=== PATIENT | female | born 1960 | race Caucasian/White ===

== ENCOUNTER 2016-11-24 01:36 | Day surgery (SDC) | payer OTHER ==
[~2016-11-24] VITALS: Ht 170.2 cm; Wt 59.5 kg
[2016-11-24] VITALS (14 sets, daily range): BP systolic 98–131; BP diastolic 48–71; PULSE 75–86; RESP 13–20; O2SAT 91–97
[~2016-11-24 01:36] MED LIST: AMLO5TAB2 PO; FUR20 PO; GABA-502 PO; LORA2TAB PO; METO-272 PO; NITR0.4T6 SL; OXYC5SOL11 PO; PANT40TA3 PO; PROC-4 PO; SUCR1TAB PO; VIT D2 PO; ZOLP10TA5 PO
[2016-11-24] MEDS ORDERED: 0.9% Sodium Chloride 1,000 ML IV SCH (11:45)
[2016-11-24 12:58] LABS: BASOPHILS % (AUTO) 0.3 % (0-3); EOSINOPHILS % (AUTO) 0.4 % (0-5); MONOCYTES % (AUTO) 6.3 % (4-12); Mean Corpuscular Hemoglobin 28.9 pg (27.0-35.0); NEUTROPHILS % (AUTO) 71.9 % (40-74); Platelet Count 375 bil/L (150-400)
[2016-11-24] MEDS ORDERED: Heparin 5,000 Units/500 mL NS Premix IV ONE (13:21)
[2016-11-24] MEDS ORDERED: Heparin 1,000 Units/500 mL NS Premix IV ONE (13:21)
[2016-11-24] MEDS ORDERED: Nitroglycerin 50,000 mcg/250 mL D5W Premix IV ONE (13:21)
[2016-11-24 13:24] LABS: INR 0.85 ratio
[2016-11-24] MEDS ORDERED: Heparin 1,000 Unit/mL 10 mL Inj ONE (13:24)
[2016-11-24] MEDS ORDERED: CILO50TA PO (13:27)
[2016-11-24] MEDS ORDERED: CHOL500050 PO (13:27)
[2016-11-24] MEDS ORDERED: RANI300T4 PO (13:27)
[2016-11-24] MEDS ORDERED: DOCU250C2 PO (13:27)
[2016-11-24] MEDS ORDERED: POTA-62 PO (13:27)
[2016-11-24] MEDS ORDERED: MAGN400T39 PO ×2 (13:27)
[2016-11-24] MEDS ORDERED: IBUP800T28 PO (13:27)
[2016-11-24] MEDS ORDERED: OXYB5TAB PO (13:27)
[2016-11-24] MEDS ORDERED: AMLO10TA3 PO (13:27)
[2016-11-24] MEDS ORDERED: ISOS30TA4 PO (13:27)
[2016-11-24] MEDS ORDERED: TIZA2TAB3 PO (13:27)
--- NOTE | 2016-11-24 13:40 | NUR ---
HANNA admit Admitted to [facility] about 1215. VSS. Tele appears to be SR with IVCD. States chronic pain that is currently 7/10 and uncomfortable though she took Oxycodone 10mg at 1000. States she would have to take too much pain medication to be truly comfortable. IVs started and labs sent. Procedure and recovery reviewed and verbalizes understanding. See EMR for further info and assessment. Premeds given about 1330, Ativan 1mg IVP and Benadryl 25mg IVP. To slab tripper about 1335.
[2016-11-24] MEDS ORDERED: fentaNYL-PF 50 mCg/mL 2 mL Inj ONE (13:46)
--- NOTE | 2016-11-24 14:55 | NUR ---
Returned Returned from labor mediator about 1450 with sheath in. labor relations officer personal here to pull. VSS. No bleeding or hematoma pre pull. States pain tolerable. Dozing. SPO2 drops to as low as 87% on RA sleeping. O2 placed at 2L BNC and SPO2 increased to 92-94%.
[2016-11-24] MEDS ORDERED: ATRV10T PO (15:40)
--- NOTE | 2016-11-24 19:35 | NUR ---
Discharge VS and groin stable at 1910 when bedrest complete. Had c/o 9/10 generalized pain at [address] Eid notified. Home med ordered and given with pain down to 6/10. Up and ambulated in mathews without change in groin. Discharge instructions given, see sheets and verbalizes understanding. Prescription given. IVs discontinued intact. Discharged ambulatory with all belongings and in no distress.
--- NOTE | 2016-11-25 06:45 | CS94 ---
[address] [address] DIAGNOSTIC CARDIAC CATHETERIZATION PATIENT: SINA RYAN : 1960 MR#: [id number] ADMIT: 11/24/2016 JOB ID: [id number] SERVICE DATE: 11/24/2016 CHIEF COMPLAINT: Angina. HISTORY OF PRESENT ILLNESS: The patient is a 65-year-old woman with severe life-threatening anemia, hemoglobin was 5 during her hospitalization at [facility] in July 2016. She had associated elevated troponin I which peaked at 0.7 in the setting of normal kidney function. EKG difficult to interpret due to left bundle branch block. Her echocardiogram at that time showed apical hypokinesis with preserved EF. She responded well to medical therapy and subsequent echo September 2015 showed normal EF with no associated focal motion abnormalities. Unfortunately, lately she has developed worsening exertional chest discomfort and Cardiology was consulted to assist with management. Today, she is here for diagnostic cath. PROCEDURES PERFORMED: 1. Left heart catheterization-selective coronary angiograms. 2. Right common femoral artery vascular access under ultrasound guidance. 3. Manual hold. DESCRIPTION OF PROCEDURE: Following informed consent, the patient was prepped and draped in a sterile fashion. A 6-Dutch sheath was placed in the right common femoral artery. Sheath placement was confirmed via femoral angiogram. JL4, JR4 catheters were used to engage left main and right coronary arteries. injection of craniocaudal angulation was used to obtain selective coronary angiograms. All exchanges were performed over a wire. Left ventricular end-diastolic pressure was recorded via JR4 catheter. At this juncture, catheters were withdrawn, hemostasis was obtained. The patient tolerated the procedure with no obvious complications. IODINATED CONTRAST USED: 75 cc. FINDINGS: RIGHT COMMON FEMORAL ARTERY: By ultrasound, patient had moderately calcified common femoral artery, superficial femoral artery and profunda femoris. The sheath enters the SFA at the lower third of the femoral head. There is no evidence of contrast extravasation or dissection. There is heavy calcification up and down the common iliac artery, but no obstructive disease is present. CORONARY ANGIOGRAM: Left main gives rise to circumflex and LAD. There is a moderate (30%) stenosis but no hemodynamically significant lesion was present. LAD is a wrap-around vessel. It demonstrates moderate calcification. It gives rise to the 1st diagonal branch which is somewhat tortuous. After the diagonal branch, there is a 40%-50% stenosis. There is a long 40%-50% stenosis in the distal portion of the LAD just distal to the 2nd small diagonal branch, but it does not appear to be hemodynamically significant. It is best appreciated on [place]O cranial view. Circumflex gives rise to two OM branches, medium sized 1st OM and large second OM and then travels in the AV groove as a diminutive vessel. No obstructive lesions are seen. The right coronary artery is a dominant vessel. It gives rise to a 99% disease of ostial small atrial recurrent branch. There is a 30%-40% eccentric proximal RCA lesion which does not appear to be hemodynamically significant. IMPRESSION: 1. Atherosclerotic heart disease and GIN FEEDER disease without hemodynamically significant stenosis. 2. There is moderate nonhemodynamically significant 30% distal left main lesion, a 40%-50% mid left anterior descending and distal left anterior descending lesion and 40% proximal right coronary artery stenosis and these are not hemodynamically significant. 3. High filling pressure. End diastolic pressure is above 25. PLAN: For this patient is to continue amlodipine 10 mg daily. I think she may be a person who would do really well with a little bit of beta-libby for medical management of her angina. Thank you very much for the opportunity to evaluate her. MARILEE
== END 2016-11-24 23:59 | disposition home or self-care (01) ==
LOC: SOUO 01:36
PROVIDERS: ATTEND Internal Medicine
DX: I25.119 Atherosclerotic heart disease of native coronary artery with unspecified angina pectoris (principal); I70.201 Unspecified atherosclerosis of native arteries of extremities, right leg; I10 Essential (primary) hypertension; D50.0 Iron deficiency anemia secondary to blood loss (chronic); I42.9 Cardiomyopathy, unspecified; Z87.891 Personal history of nicotine dependence; I70.8 Atherosclerosis of other arteries
CPT/HCPCS: 36415; 80048; 85025; 85610; 93458; 99152; C1769; J1200; J1644; J2060; J2250; J3010; J7030; Q9967

== ENCOUNTER 2017-02-15 15:51 | Inpatient (IN) | payer OTHER ==
[~2017-02-15] VITALS: Ht 170.2 cm; Wt 62.2 kg
[~2017-02-15 15:51] MED LIST changes: +AMLO10TA3 PO; -AMLO5TAB2 PO; +ATRV10T PO; +CHOL500050 PO; +DOCU250C2 PO; -FUR20 PO; +IBUP800T28 PO; +ISOS30TA4 PO; +MAGN400T39 PO; +OXYB5TAB PO; +POTA-62 PO; +RANI300T4 PO; +TIZA2TAB3 PO; -VIT D2 PO
[2017-02-15 16:00] VITALS: BP 144/78; PULSE 96; RESP 20; O2SAT 92
--- NOTE | 2017-02-15 16:07 | ED.REPORT ---
HPI-Abd Pain F 40 and Over Date of Service Feb 15, 2017 ED Provider: History of Present Illness: 56-year-old female here with abdominal pain, chest pain, shortness of breath. She has a history of chronic abdominal pain with an unknown diagnoses. She has had lengthy workups in the past. For the past month she has felt burning in her lower bowels. It is constant and worsens with the bowel movement. Last BM was today, passing gas. Usually her belly pain goes away by midday but today it has just been constant and unbearable. She vomits nightly and she did vomit last night. Does not complain of nausea now. Over the past few days she has been short of breath worsening with activity. She complains of chest pain onset 7 AM today. SHe feels a pressure over her left chest. Denies nausea, and lightheadedness. She has an appointment with a new GI specialist on Thursday of this week. Last saw GI earlier this year and has had colonoscopies. She has a known "bowel bleed" she did see some bright red blood in her stool today as she does every day. She is a history of cardiomyopathy as well and normally sats low. She states that 92% is good for her. NO fevers. Nursing Notes Stated Complaint: BOWELS FEEL LIKE THEIR ON FIRE,HAS BOWEL DISEASE Chief Complaint: Female Abdominal Pain Nursing Notes Reviewed: Yes Allergies: Coded Allergies: ciprofloxacin (Verified Allergy, Severe, HIVES, 02/15/17) adhesive tape (Verified Adverse Reaction, Intermediate, WELTS, 02/15/17) Scheduled Amlodipine (Amlodipine) 10 Mg Tablet 10 MG PO DAILY Atorvastatin (Lipitor) 10 Mg Tab 10 MG PO DAILY Cholecalciferol (Vitamin D3) (Vitamin D) 50,000 Unit Capsule 50,000 UNIT PO WEEKLY Gabapentin (Gabapentin) 300 Mg Capsule 300 MG PO BID Isosorbide MN ER (Isosorbide MN ER) 30 Mg Tab.er.24h 30 MG PO DAILY Magnesium Oxide (Magnesium) 400 Mg Tablet 800 MG PO MORNING Magnesium Oxide (Magnesium) 400 Mg Tablet 400 MG PO QPM Metoprolol Succinate ER (Metoprolol Succinate ER) 50 Mg Tab.er.24h 50 MG PO DAILY Nitroglycerin SL (Nitroglycerin SL) 0.4 Mg Tab.subl 0.4 MG SL PRN Oxybutynin Chloride ER (Oxybutynin Chloride ER) 5 Mg Tab.er.24 5 MG PO DAILY Pantoprazole DR (Pantoprazole DR) 40 Mg Tablet.dr 40 MG PO DAILY Potassium Chloride ER (Potassium Chloride ER) 20 Meq Tablet.er 20 MEQ PO TID TAKE WITH FOOD Prochlorperazine Maleate (Compazine) 10 Mg Tablet 10 MG PO TID Ranitidine (Ranitidine) 300 Mg Tablet 300 MG PO HS Sucralfate (Sucralfate) 1 Gm Tablet 1 GM PO TID Tizanidine (Tizanidine) 2 Mg Tablet 2 MG PO TID Scheduled PRN Docusate Sodium (Docusate Sodium) 250 Mg Capsule 250 MG PO DAILY PRN PRN For Constipation Ibuprofen (Ibuprofen) 800 Mg Tablet 800 MG PO TID PRN PRN For Pain Lorazepam (Lorazepam) 2 Mg Tablet 2 MG PO HS PRN PRN For Insomnia Zolpidem (Zolpidem) 10 Mg Tablet 5-10 MG PO HS PRN PRN For Insomnia oxyCODONE (oxyCODONE) 5 Mg/5 Ml Solution 10-20 MG PO Q4 PRN PRN For Pain [id number] PRN PAIN General Time Seen by MD: 16:07 Chief Complaint Abdominal pain, Nausea Hx Obtained From: Patient Arrived By: Walk-in Sudden in Onset?: No Onset Occurred: Onset unknown Symptom Duration: Constant Location: : Diffuse Quality: Burning Radiation: : Does not radiate Associated with: Reports: Chest pain, Vomiting Recent Healthcare: Recent doctor visit Similar Sx Previous: Yes Past Medical History Smoking History Former Smoker Review of Systems Basic Review of Systems Eyes: Vision NL, No discharge ENT: Hearing NL, No pain, No nasal congestion, No pharyngeal pain Skin: No bruising, No rash, No itch Allergy / Immune: No allergy Neurologic: NL mental status, No weakness, No numbness Psychiatric: Normal thought content Constitutional: Denies: Chills, Fatigue, Fever Respiratory: Reports: Dyspnea on exertion, Non-productive cough Cardiovascular: Reports: Chest pain, Dyspnea on exertion GI: Reports: Abdominal pain, Nausea, Vomiting, Denies: Constipation, Diarrhea Female: Denies: Dysuria, Flank pain Musculoskeletal: Denies: Back pain, Extremity pain, Extremity swelling Complete sys rev & neg: except as marked. Physical Exam Vital Signs Vital Signs (First) Date Time Temp Pulse Resp B/P Pulse Ox O2 Delivery O2 Flow Rate FiO2 02/15/17 16:00 36.6 96 20 144/78 92 Room Air Initial VS: Reviewed, Vital signs normal Head / Eyes: Atraumatic, Normocephalic, PERRL ENT: Mucous membranes moist, Conjunctiva normal, No scleral icterus Neck: Supple, Non-tender, Full range of motion Lymphatic: No lymphadenopathy Extremities: Vascular intact, Neuro intact, No swelling, No tenderness Skin: Warm, Dry, No cyanosis Neurologic: Alert, Oriented, Nonfocal Psychiatric: Mood/affect normal, Behavior normal, Normal thought content General/Constitutional: Awake, Alert Respiratory / Chest: Breath sounds NL, Breath sounds = bilat, No respiratory distress, No rales, No rhonchi, No wheezing, No stridor Cardiovascular: Heart rate NL, Regular rhythm, Heart sounds NL, Peripheral circulation NL Abdomen: Atraumatic, BS normoactive, No distention, No hernia, No palpable mass , No pulsatile mass Tenderness/Guarding/Rebound: Positive: Tender diffuse, Negative: Tender flank L, Tender flank R Skin: Color NL, Warm, Dry, Turgor NL Interpretation & Diagnostics Lab Results Interpretation Result Diagram: 02/15/17 1725 02/15/17 1725 Test 02/15/17 17:15 02/15/17 17:25 Hold Urine Received (Received) White Blood Count 12.4th/mm3 (3.8-10.1) Red Blood Count 4.80mil/mm3 (3.90-5.20) Hemoglobin 13.2g/dL (12.0-15.6) Hematocrit 43.1% (35.0-46.0) Mean Corpuscular Volume 89.8fL (81-100) Mean Corpuscular Hemoglobin 27.5pg (27.0-35.0) Mean Corpuscular Hemoglobin Concent 30.6% (32.0-37.0) Red Cell Distribution Width 15.7% (12.3-15.4) Platelet Count 324bil/L (150-400) Neutrophils (%) (Auto) 77.3% (40-74) Lymphocytes (%) (Auto) 13.6% (14-46) Monocytes (%) (Auto) 7.9% (4-12) Eosinophils (%) (Auto) 0.6% (0-5) Basophils (%) (Auto) 0.4% (0-3) Sodium Level 135mEq/L (134-144) Potassium Level 3.6mEq/L (3.5-5.2) Chloride Level 96mEq/L (97-108) Carbon Dioxide Level 24mmol/L (18-29) Blood Urea Nitrogen 16mg/dL (6-24) Creatinine 0.35mg/dL (0.57-1.00) Estimat Glomerular Filtration Rate 276mL/min (>59) Glucose Level 118mg/dL (60-99) Calcium Level 9.2mg/dL (8.5-10.1) Magnesium Level 1.4mg/dL (1.6-2.6) Total Bilirubin 0.2mg/dL (0.0-1.2) Aspartate Amino Transf (AST/SGOT) 15U/L (0-50) Alanine Aminotransferase (ALT/SGPT) 10U/L (0-32) Alkaline Phosphatase 123U/L (25-150) Troponin T < 0.010ug/L (0.0-0.011) Total Protein 5.6g/dL (6.4-8.4) Albumin 2.9g/dL (3.4-5.0) Amylase Level 24U/L (28-100) Lipase 29U/L (13-60) X-Ray Interpretation Xray Interpretation: PROCEDURE: X-RAY CHEST, TWO VIEWS ([id number]) INDICATIONS: chest pain TECHNIQUE: 2 views of the chest were acquired. COMPARISON: [facility], CT, CT ABD RENAL PROTOCOL, 09/23/2016, 14:41. FINDINGS: Surgical changes and devices: Surgical clips in the left breast and axilla, as well as right mediastinal border. Lungs and pleura: Lungs are lucent, suggesting emphysema. No pleural effusions or pneumothorax. Lungs are clear. Mediastinum: Mediastinal contours are normal. Heart size is normal. Bones and chest wall: No suspicious bony abnormalities. Soft tissues appear unremarkable. IMPRESSION: No acute cardiopulmonary disease. CT Abd / Pelvis Interpretation IMPRESSION: 1. Markedly distended stomach suspicious for gastric outlet obstruction. There are postsurgical changes in stomach. Please correlate with surgical history. 2. Fluid-filled small intestine with increased mucosal enhancement. This finding is nonspecific and could be secondary to gastroenteritis. 3. Small hypodense cortical nodule in the inferior pole of left kidney appears stable. 4. Mild mesenteric lymphadenopathy. 5. Hepatomegaly. 6. Fluid filled slightly distended distal esophagus, possibly secondary to gastroesophageal reflux. Study type: Abdominal CT IV contrast Re-Eval/Medical Decision Med Decision/Clinical Course Patient and much less pain than she was when she came in here. He states every evening she vomits up her dinner at about midnight however she is able to keep lunch and breakfast down. Today the abdominal pain was worse and she was not able to keep her breakfast down. After multiple rechecks she still has moderate abdominal tenderness. STates her SOB went away with relief of pain Discussed CAT scan with Dr. Atwood. Due NG tube with suction and possible admit Avinash, air moving technician will admit pt with GI consult GI lauro will consult. Lauro would liek 40mg IV protonix bid 2130 pt comfortable, vitals stable, awaiting bed Discharge & Departure Shift Change Sign-Out Laboratory Evaluation: Lab evaluation discussed Imaging Studies: Imaging discussed Response to Therapy: Improved Primary Impression: Gastric outlet obstruction Disposition: ADMITTED TO HOSPITAL Discharge Condition All VS Reviewed: Yes Condition: Stable Referrals: Rene Bennett (PCP) EDSupervising Provider for APC: Raulito Atwood DO copies to: Raulito Atwood DO; Kenroy Restrepo MD; Cali Ronquillo MD, Linnea K ARNP Feb 15, 2017 16:07
[2017-02-15] MEDS ORDERED: Ondansetron 2 mg/mL 2 mL Inj IVPUSH ONE (17:05)
--- NOTE | 2017-02-15 17:11 | DRSVH ---
PROCEDURE: X-RAY CHEST, TWO VIEWS ([id number]) INDICATIONS: chest pain TECHNIQUE: 2 views of the chest were acquired. COMPARISON: [facility], CT, CT ABD RENAL PROTOCOL, 09/23/2016, 14:41. FINDINGS: Surgical changes and devices: Surgical clips in the left breast and axilla, as well as right mediasti nal border. Lungs and pleura: Lungs are lucent, suggesting emphysema. No pleural effusions or pneumothorax. [place] gs are clear. Mediastinum: Mediastinal contours are normal. Heart size is normal. Bones and chest wall: No suspicious bony abnormalities. Soft tissues appear unremarkable. IMPRESSION: No acute cardiopulmonary disease. Dictated by: Fawad Hung M.D. on 02/15/2017 at 17:08 Approved by: Fawad Hung M.D. on 02/15/2017 at 17:09
[2017-02-15 17:45] LABS: BASOPHILS % (AUTO) 0.4 % (0-3); EOSINOPHILS % (AUTO) 0.6 % (0-5); MONOCYTES % (AUTO) 7.9 % (4-12); Mean Corpuscular Hemoglobin 27.5 pg (27.0-35.0); Mean Corpuscular Volume 89.8 fL (81-100); NEUTROPHILS % (AUTO) 77.3 % (40-74); Platelet Count 324 bil/L (150-400)
[2017-02-15 18:11] LABS: Lipase 29 U/L (13-60); Magnesium 1.4 mg/dL (1.6-2.6); TROPONIN T < 0.010 ug/L (0.0-0.011)
--- NOTE | 2017-02-15 19:09 | DRSVH ---
PROCEDURE: CT ABDOMEN AND PELVIS WITH CONTRAST ([id number]) INDICATIONS: abd pain TECHNIQUE: After the administration of intravenous contrast, 5 mm thick sections acquired from the diaphragm to the symphysis. 5 mm coronal and sagittal reformats were acquired. For radiation dose reduction, the following was used: automated exposure control, adjustment of mA and/or kV according to patient siz e. COMPARISON: [facility], CR, XR CHEST 2VW, 02/15/2017, 16:40. [facility], MR, ABD/PELVIS W & WO CONT (PNL), 09/13/2014, 8:02. [facility], CT, ABD/PELVIS W/CON (PNL), 09/05/2014, 15:59. [facility], CT, CT ABD RENAL PROTOCOL, 09/23/2016, 14:41. [facility], CT, CT ABD RENAL PROTOCOL, 04/03/2016, 13:46. FINDINGS: Image quality: Excellent. ABDOMEN: Lung bases: Lung bases are clear. Heart size is normal. Solid organs: Liver is enlarged measuring 24.5 cm. Spleen is normal in size and enhancement. Gallbl adder is surgically absent. Biliary system is non dilated. Pancreas is somewhat atrophic. Pancreas enhances normally. No adrenal nodules. Kidneys demonstrate normal size and symmetrical enhancement, without hydronephrosis. There is a small hypoenhancing cortical nodule in the inferior pole of the left kidney measuring 0.8 x 1.0 cm, unchanged in size. Peritoneum and bowel: Stomach is distended and filled with debris. There are postsurgical changes in stomach with a surgical suture. Fluid-filled small bowel loops are noted in the right upper abdomen. There is mildly increased small bowel mucosal enhancement.: demonstrate normal wall thickness and ca liber and absence of contrast. No free fluid or air. Nodes and vessels: Enlarge mesenteric lymph nodes are present measuring up to 1.2 cm in short axis. r etroperitoneal or mesenteric adenopathy by size criteria. Aorta and inferior vena cava are normal in size. There is moderate to severe aortic and iliac artery atherosclerosis Miscellaneous: No ventral hernias. PELVIS: Genitourinary: Bladder wall thickness is normal. Miscellaneous: No inguinal hernias or adenopathy. Bones: No suspicious bony lesions. No vertebral body compression fractures. IMPRESSION: 1. Markedly distended stomach suspicious for gastric outlet obstruction. There are postsurgical davis es in stomach. Please correlate with surgical history. 2. Fluid-filled small intestine with increased mucosal enhancement. This finding is nonspecific and c ould be secondary to gastroenteritis. 3. Small hypodense cortical nodule in the inferior pole of left kidney appears stable. 4. Mild mesenteric lymphadenopathy. 5. Hepatomegaly. 6. Fluid filled slightly distended distal esophagus, possibly secondary to gastroesophageal reflux. Dictated by: Fawad Hung M.D. on 02/15/2017 at 18:51 Approved by: Fawad Hung M.D. on 02/15/2017 at 19:08
[2017-02-15] MEDS ORDERED: 0.9% Sodium Chloride 500 ML IV ONE (19:25)
[2017-02-15 19:55] VITALS: BP 124/62; PULSE 72; RESP 18; O2SAT 88
[2017-02-15 20:30] VITALS: BP 118/72; PULSE 78; RESP 18; O2SAT 95
[2017-02-15] MEDS ORDERED: Polyethylene Glycol (PEG) 17 Gm Powder PO PRN (20:55)
[2017-02-15] MEDS ORDERED: Pantoprazole 4 mg/mL 10 mL Inj IVPUSH ONE (21:30)
--- NOTE | 2017-02-15 21:39 | PCM.HPMED ---
Subjective Date of Service Feb 15, 2017 Primary Provider: Admitting Physician: Cali Ronquillo MD Primary Care Physician: Other,Physician Attending Physician: Cali Ronquillo MD Admit Status: From the Emergency Department Chief Complaint: Nausea, Vomiting, Upper Abdominal Pain History of Present Illness: Very pleasant 56yo woman with complex GI history including distant partial gastrectomy, chronic GI bleed with anemia, SBO presents with nausea, vomiting, and burning pain in the stomach and low abdomen worsening over the last month. She reports that she has been vomiting at night after dinner for the last month or longer, but also recently started vomiting after breakfast and the abdominal pain and burning increased today to being intolerable. She says the partial gastrectomy was an attempt to treat her GI bleed which may have been from bleeding ulcers, but she has continued to have chronic mild bleeding and anemia. She did see some bright red blood in her stool today as she does every day. She is a history of cardiomyopathy as well and normally sats low. She states that 92% is good for her. She also has HTN and HLD. Review of Systems: 12 point ROS is otherwise negative. Allergies Coded Allergies: ciprofloxacin (Verified Allergy, Severe, HIVES, 02/15/17) adhesive tape (Verified Adverse Reaction, Intermediate, WELTS, 02/15/17) Home Medications Scheduled Amlodipine (Amlodipine) 10 Mg Tablet 10 MG PO DAILY Atorvastatin (Lipitor) 10 Mg Tab 10 MG PO DAILY Cholecalciferol (Vitamin D3) (Vitamin D) 50,000 Unit Capsule 50,000 UNIT PO WEEKLY Gabapentin (Gabapentin) 300 Mg Capsule 300 MG PO BID Isosorbide MN ER (Isosorbide MN ER) 30 Mg Tab.er.24h 30 MG PO DAILY Magnesium Oxide (Magnesium) 400 Mg Tablet 800 MG PO MORNING Magnesium Oxide (Magnesium) 400 Mg Tablet 400 MG PO QPM Metoprolol Succinate ER (Metoprolol Succinate ER) 50 Mg Tab.er.24h 50 MG PO DAILY Nitroglycerin SL (Nitroglycerin SL) 0.4 Mg Tab.subl 0.4 MG SL PRN Oxybutynin Chloride ER (Oxybutynin Chloride ER) 5 Mg Tab.er.24 5 MG PO DAILY Pantoprazole DR (Pantoprazole DR) 40 Mg Tablet.dr 40 MG PO DAILY Potassium Chloride ER (Potassium Chloride ER) 20 Meq Tablet.er 20 MEQ PO TID TAKE WITH FOOD Prochlorperazine Maleate (Compazine) 10 Mg Tablet 10 MG PO TID Ranitidine (Ranitidine) 300 Mg Tablet 300 MG PO HS Sucralfate (Sucralfate) 1 Gm Tablet 1 GM PO TID Tizanidine (Tizanidine) 2 Mg Tablet 2 MG PO TID Scheduled PRN Docusate Sodium (Docusate Sodium) 250 Mg Capsule 250 MG PO DAILY PRN PRN For Constipation Ibuprofen (Ibuprofen) 800 Mg Tablet 800 MG PO TID PRN PRN For Pain Lorazepam (Lorazepam) 2 Mg Tablet 2 MG PO HS PRN PRN For Insomnia Zolpidem (Zolpidem) 10 Mg Tablet 5-10 MG PO HS PRN PRN For Insomnia oxyCODONE (oxyCODONE) 5 Mg/5 Ml Solution 10-20 MG PO Q4 PRN PRN For Pain Q4-O2EPAHN PRN PAIN PMH Bleeding Ulcer Cardiomyopathy Peripheral Artery Disease HLD HTN Chronic Anemia Surgical History Partial Gastrectomy SBO laparoscopic surgery Family History Father unknown Mother has CHF and Crohn's Disease Social History Hx Alcohol Use: No Hx Substance Use: No Hx Tobacco Use: No Smoking Status: Former Smoker (quit in 1989) Living Arrangement: with Family Exam Vital Signs Vital Sign - Last Date Time Temp Pulse Resp B/P Pulse Ox O2 Delivery O2 Flow Rate FiO2 02/15/17 19:55 36.4 72 18 124/62 88 Room Air Exam General: Alert, Oriented X3, Cooperative, No Acute Distress Head: Normocephalic, atraumatic. External ears normal. Eyes: PERRLA, EOMI. Anicteric sclerae. Mouth: Mouth Normal, Mucous Membranes pink, slightly dry Neck: Neck supple with full range of motion. Chest & Lungs: Clear to auscultation bilaterally with no crackles, wheezes, or rhonchi. Cardiovascular: Regular Rate/Rhythm, Normal S1, Normal S2, No Murmurs/Rubs/ Gallops Abdomen: Tender diffusely, Non-distended, No masses, Normoactive bowel tones, Soft Musculoskeletal: Normal Range of Motion Extremities: No cyanosis/clubbing/edema bilaterally Lab and Diagnostics Labs Laboratory Tests Test 02/15/17 17:15 02/15/17 17:25 Hold Urine Received (Received) White Blood Count 12.4th/mm3 (3.8-10.1) Red Blood Count 4.80mil/mm3 (3.90-5.20) Hemoglobin 13.2g/dL (12.0-15.6) Hematocrit 43.1% (35.0-46.0) Mean Corpuscular Volume 89.8fL (81-100) Mean Corpuscular Hemoglobin 27.5pg (27.0-35.0) Mean Corpuscular Hemoglobin Concent 30.6% (32.0-37.0) Red Cell Distribution Width 15.7% (12.3-15.4) Platelet Count 324bil/L (150-400) Neutrophils (%) (Auto) 77.3% (40-74) Lymphocytes (%) (Auto) 13.6% (14-46) Monocytes (%) (Auto) 7.9% (4-12) Eosinophils (%) (Auto) 0.6% (0-5) Basophils (%) (Auto) 0.4% (0-3) Sodium Level 135mEq/L (134-144) Potassium Level 3.6mEq/L (3.5-5.2) Chloride Level 96mEq/L (97-108) Carbon Dioxide Level 24mmol/L (18-29) Blood Urea Nitrogen 16mg/dL (6-24) Creatinine 0.35mg/dL (0.57-1.00) Estimat Glomerular Filtration Rate 276mL/min (>59) Glucose Level 118mg/dL (60-99) Calcium Level 9.2mg/dL (8.5-10.1) Magnesium Level 1.4mg/dL (1.6-2.6) Total Bilirubin 0.2mg/dL (0.0-1.2) Aspartate Amino Transf (AST/SGOT) 15U/L (0-50) Alanine Aminotransferase (ALT/SGPT) 10U/L (0-32) Alkaline Phosphatase 123U/L (25-150) Troponin T < 0.010ug/L (0.0-0.011) Total Protein 5.6g/dL (6.4-8.4) Albumin 2.9g/dL (3.4-5.0) Amylase Level 24U/L (28-100) Lipase 29U/L (13-60) Result Diagram: 02/15/175 02/15/17 1725 X-Rays, CTs and MRIs CXR, 02.15.17 IMPRESSION: No acute cardiopulmonary disease. CT abdomen and pelvis, 02.15.17 IMPRESSION: 1. Markedly distended stomach suspicious for gastric outlet obstruction. There are postsurgical changes in stomach. Please correlate with surgical history. 2. Fluid-filled small intestine with increased mucosal enhancement. This finding is nonspecific and could be secondary to gastroenteritis. 3. Small hypodense cortical nodule in the inferior pole of left kidney appears stable. 4. Mild mesenteric lymphadenopathy. 5. Hepatomegaly. 6. Fluid filled slightly distended distal esophagus, possibly secondary to gastroesophageal reflux. 12-lead ECG Normal Sinus Rhythm with LBBB Assessment & Plan 56yo woman with history of partial gastrectomy, chronic GI bleed, SBO presents with increasing abdominal pain, nausea, and vomiting for the last month, intolerable today. CT suggests gastric outlet obstruction, distension of distal esophagus. 1. Gastric Outlet Obstruction, POA, confirmed by CT with clinical correlation of symptoms. -NPO -Nasogastric tube placed -Pain well controlled with one dose of Morphine 4mg IV, now 2mg IV q4h PRN -GI consult has been placed, Dr Grider will see patient. -Start replacement 2. Nausea and Vomiting -Ondansetron 4mg IV PRN 3. GERD -Pantoprazole 40mg IV push BIDAC 4. Hypovolemia with poor intake, poor tissue turgor on exam -NS 500ml IV bolus given in ER -Start NS 100ml/h IV as maintenance 5. Hypomagnesemia at 1.4. Chronic hypomagnesemia and chronic hypokalemia on replacement therapy. -Nurse to initiate K/Mg repletion protocol 6. Insomnia with anxiety treated at home with Zolpidem and Lorazepam 2mg PO at bedtime -Lorazepam 2mg IV q4h PRN 7. HTN presently under good control after pain medication, 124/62 -hold home medications and start again as needed if/when patient can tolerate orals -start IV HTN medications if needed 8. HLD, holding home medications while NPO 9. History of Cardiomyopathy with chronic hypomagnesemia and hypokalemia -as above K/Mg repletion protocol -Patient placed on telemetry -Metoprolol 2.5mg IV q6h to start in the morning Pain Evaluation: Adequate Pain Control GI Prophylaxis: Proton Pump Inhibitor VTE Prophylaxis Indicated: Contraindicated VTE Mechanical Devices: Intermittant Pneumatic CD Resuscitation Status: CPR: Attempt Resuscitation VTE Prophylaxis Contraindicate VTE Med Contraindication: Bleeding (chronic GI bleeding) Attending Statement The patient was seen and examined together with Dr. Mg on 02/15 and I agree with the history, exam and plan as outlined in the note above. Hans gM DO Feb 15, 2017 21:39 Cali Ronquillo MD Feb 16, 2017 06:51
[2017-02-15 21:59] VITALS: BP 139/71; PULSE 78; RESP 18; O2SAT 92
[2017-02-15] MEDS: Ondansetron 2 mg/mL 2 mL Inj IVPUSH PRN (23:13)
[2017-02-15 23:53] VITALS: PULSE 73
[2017-02-16] VITALS (9 sets, daily range): BP systolic 115–145; BP diastolic 62–75; PULSE 68–86; RESP 14–20; O2SAT 89–96
[2017-02-16] MEDS ORDERED: Magnesium Sulf 2 Gm/50mL Water 2 GM in IV Premix 1 EACH IV ONE (02:25)
[2017-02-16] MEDS ORDERED: 0.9% Sodium Chloride 100 ML ONE (04:50)
--- NOTE | 2017-02-16 05:21 | NUR ---
Admission Pt arrived to [facility] at 2215 via gurney and was able to self transfer onto the scale and bed with a steady gait. Pt had received pain meds prior to transferring to the unit and stated the meds were helpful. Pt oriented to call light, bed controls, television, and bathroom. Denies chest pain, shortness of breath and nausea. Dr. Ronquillo ordered to have NG tube intermittent low suction. care ongoing.
[2017-02-16] MEDS: Ondansetron 2 mg/mL 2 mL Inj IVPUSH PRN ×5 (05:34→23:09)
--- NOTE | 2017-02-16 05:34 | NUR ---
Nausea Pt c/o nausea. Zofran 4mg given IVP. Care ongoing.
--- NOTE | 2017-02-16 05:48 | NUR ---
Pain Pt c/o abd pain 06/11. Morphine 2mg IVP given. Care ongoing.
[2017-02-16 06:18] LABS: BASOPHILS % (AUTO) 0.4 % (0-3); EOSINOPHILS % (AUTO) 2.3 % (0-5); MONOCYTES % (AUTO) 9.1 % (4-12); Mean Corpuscular Hemoglobin 27.6 pg (27.0-35.0); Mean Corpuscular Volume 91.5 fL (81-100); NEUTROPHILS % (AUTO) 69.5 % (40-74); Platelet Count 301 bil/L (150-400)
--- NOTE | 2017-02-16 06:33 | NUR ---
Tele/O2 SR 71 with IVCD per orthopedic tech. Increased o2 to 3L Spo2 91%. Care ongoing.
--- NOTE | 2017-02-16 08:20 | NUR ---
IV metoprolol held Hospitalist paged to verify metoprolol order, as it is spread out as three doses. Pt is currently normotensive, no CP. Awaiting response. Addendum: 02/16/17 at 0925 by SHERLY RODRIGUEZ RN Per Dr. Moreira, metoprolol will be held at this time.
[2017-02-16] MEDS: Pantoprazole 4 mg/mL 10 mL Inj IVPUSH SCH ×2 (08:33→17:06)
[2017-02-16] MEDS: MeTOProlol 1 mg/mL 5 mL Inj IVPUSH SCH ×3 (09:23→19:30)
[2017-02-16] MEDS ORDERED: METO10TA3 PO (09:35)
[2017-02-16] MEDS: Dextrose 5% 0.45% NaCl 1,000 ML IV SCH ×2 (10:51→23:09)
[2017-02-16] MEDS: Phenol 1.4% 177 mL Spray MUC_MEMBRM PRN ×3 (11:18→17:04)
--- NOTE | 2017-02-16 13:00 | DRSVH ---
PROCEDURE: X-RAY ABDOMEN, ONE VIEW ([id number]) INDICATIONS: 56 year-old female with small bowel obstruction. TECHNIQUE: One view of the abdomen acquired. COMPARISON: [facility], CT, CT ABD PELVIS W CON, 02/15/2017, 18:32. FINDINGS: Surgical changes and devices: New esophagogastric tube is present, with tip in the gastric body. Righ t mid abdomen and left pelvic surgical clips are present, as well as gastric anastomotic aaron. Bowel: Bowel gas pattern is normal, with interval decreased size of the gastric lumen. Soft tissues: No suspicious abdominal calcifications. Visualized solid organ contours appear normal in size. There is aortoiliac atherosclerosis. Bones: No suspicious bony lesions. There is mid lumbar spine disc degeneration. IMPRESSION: Interval decreased size of the gastric lumen, status post esophagogastric tube placement. Dictated by: Domenico Blount M.D. on 02/16/2017 at 12:54 Approved by: Domenico Blount M.D. on 02/16/2017 at 12:58
--- NOTE | 2017-02-16 13:02 | NUR ---
Social Work: Screen Note Data & Assessment: EMR reviewed. Patient is a 56 y/o female that admitted on 02/15/17 with gastric outlet obstruction per H&P. SW met with patient at bedside to discuss discharge planning and SW role explained. Patient stated she lives at home with spouse and she is independent at baseline. Patient does not have a PCP and confirmed that her insurance is [employer]. Patient does not have an Advance Directive/DPOA, but received information. Patient will likely discharge home no needs. SW contact information written on patient's white board. SW will continue to follow. Plan: Patient will likely discharge home no needs. SW will continue to follow. Cheryle Dutta, DUSTIN, ACLeonel
[2017-02-16] MEDS ORDERED: Propofol 10,000 mCg/mL 20 mL Inj ONE (13:25)
--- NOTE | 2017-02-16 17:12 | PCM.PNMED ---
Subjective Date of Service Feb 16, 2017 Subjective Patient was seen and examined at bedside today. Patient did have an NG tube in her nose and stated that she felt a little uncomfortable however she did state she understood the reason for the NG tube and was willing to continue to be compliant with it. Patient states that she still has abdominal pain and some nausea however the nausea has improved and denies any vomiting. Overnight events: None Exam Vital Signs Vital Sign - Last Date Time Temp Pulse Resp B/P Pulse Ox O2 Delivery O2 Flow Rate FiO2 02/16/17 12:02 36.4 72 14 115/65 94 Nasal Cannula 3.00 Intake and Output 02/15/17 02/15/17 02/16/17 Cumulative From/Thru 14:59 22:59 06:59 02/15/17 16:00 - 02/16/17 05:50 Intake Total 500 ml 90 ml 590 ml Output Total 760 ml 760 ml Balance 500 ml -670 ml -170 ml Intake IV Total 500 ml 50 ml 550 ml Tube Irrigant 40 ml 40 ml Output Urine Total 760 ml 760 ml # Voids 1 1 Exam Physical Exam: GEN: Patient was awake, alert, responding appropriately to questions HEENT: Pupils equal round and reactive to light, extraocular eye muscles intact , Neck soft supple, trachea midline, nomocephalic/atraumatic, NG tube in place CV: +S1/S2, regular rate and rhythm, no murmurs auscultated Respiratory: CTAB, no wheezes, rales, rhonchi GI: +bowel sounds x4, soft, compressible, tender to palpation all quadrants EXT: no clubbing, cyanosis, edema Neuro: Cranial nerves II-XII grossly intact Psych: mood and affect were appropriate IVs and Medications Medications Reviewed: Medications were reviewed in detail Lab and Diagnostics Result Diagram: 02/16/17 0510 02/16/17 0510 X-Rays, CTs and MRIs CXR, 02.15.17 IMPRESSION: No acute cardiopulmonary disease. CT abdomen and pelvis, 02.15.17 IMPRESSION: 1. Markedly distended stomach suspicious for gastric outlet obstruction. There are postsurgical changes in stomach. Please correlate with surgical history. 2. Fluid-filled small intestine with increased mucosal enhancement. This finding is nonspecific and could be secondary to gastroenteritis. 3. Small hypodense cortical nodule in the inferior pole of left kidney appears stable. 4. Mild mesenteric lymphadenopathy. 5. Hepatomegaly. 6. Fluid filled slightly distended distal esophagus, possibly secondary to gastroesophageal reflux. 12-lead ECG Normal Sinus Rhythm with LBBB Assessment & Plan 56yo woman with history of partial gastrectomy, chronic GI bleed, SBO presents with increasing abdominal pain, nausea, and vomiting for the last month, intolerable today. CT suggests gastric outlet obstruction, distension of distal esophagus. Gastric Outlet Obstruction, POA, confirmed by CT with clinical correlation of symptoms. -NPO -Continue Nasogastric tube placed -Pain control with morphine IV -GI following -Start replacement Nausea and Vomiting -Continue Ondansetron 4mg IV PRN GERD -Pantoprazole 40mg IV push BIDAC Hypovolemia -Continue IV fluids Hypomagnesemia at 1.4. Chronic hypomagnesemia on replacement therapy. -Patient was repleted with 2 g of mag sulfate -Follow up mag level in the morning Hypokalemia (chronic on replacement therapy) -Currently stable and within normal ranges Insomnia with anxiety -Hold home dose of zolpidem patient is currently nothing by mouth -Lorazepam 2mg IV q4h PRN Hypertension (controlled) -Hold home medications and start again as needed if/when patient can tolerate orals HLD -Hold home medications as patient is nothing by mouth History of Cardiomyopathy with chronic hypomagnesemia and hypokalemia -Currently stable -Patient currently on telemetry -Continue to monitor potassium and magnesium Disposition: Patient's stomach is currently being decompressed at this time. General surgery is following. GI Prophylaxis: Proton Pump Inhibitor VTE Mechanical Devices: Intermittant Pneumatic CD Resuscitation Status: CPR: Attempt Resuscitation Tamiko Moreira DO Feb 16, 2017 17:12
--- NOTE | 2017-02-16 17:40 | NUR ---
Off floor Pt is off the floor at endoscopy.
--- NOTE | 2017-02-16 17:50 | PCM.HPANE ---
Patient Data Date of Service: Feb 16, 2017 Surgeon Admitting Provider:Cali Ronquillo MD Attending Provider:Cali Ronquillo MD Primary Care Physician:Other,Physician Other Provider: Reason for Visit Gastric Outlet Obstruction Ht/WT & BMI Height (Feet): 5 Height (Inches): 7.00 Weight (Kilograms): 62.200 Body Mass Index 21.00 Allergies Coded Allergies: ciprofloxacin (Verified Allergy, Severe, HIVES, 02/15/17) adhesive tape (Verified Adverse Reaction, Intermediate, WELTS, 02/15/17) Past Anesthesia History Anesthesia History: Positive for:: Anesthesia Reactions (wakes during surgery- has happened twice ), Denies:: Abnormal Airway, Difficult Intubation, Fam Anesthesia Reaction, Fam Malignant Hypertherm, Malignant Hyperthermia Diabetes History Hx Diabetes?: No Current Bedside Blood Glucose: 94 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) Medications Blood Thinner: Aspirin Last Dose Blood Thinner: Feb 15, 2017 Home Meds Incl Beta Lisseth: Yes Date Beta Lisseth Taken: Feb 15, 2017 Time Beta Lisseth Taken: 0700 Previous Beta Lisseth Dose >24: Dose Not Given, Contraindicated Beta Lisseth Contraindicated: Pulse <70 bpm Reported Medications Metoclopramide 10 Mg Fmcrnb83 Mg PO TID Ref 0 02/16/17 Atorvastatin (Lipitor)10 Mg Tab10 Mg PO DAILY Ref 0 11/24/16 Ranitidine 300 Mg Rqvaav126 Mg PO HS Ref 0 11/24/16 Oxybutynin Chloride ER 5 Mg Tab.er.245 Mg PO DAILY Ref 0 11/24/16 Magnesium Oxide (Magnesium)400 Mg Jgostc179 Mg PO BID 11/24/16 Ibuprofen 800 Mg Skhyuw692 Mg PO TID PRN For Pain Ref 0 11/24/16 Docusate Sodium 250 Mg Yebtycd585 Mg PO DAILY PRN For Constipation Ref 0 11/24/16 Tizanidine 2 Mg Tablet2 Mg PO TID 11/24/16 Amlodipine 10 Mg Uxjuhu95 Mg PO DAILY Ref 0 11/24/16 Cholecalciferol (Vitamin D3) (Vitamin D)50,000 Unit Vstbbex30,000 Unit PO WEEKLY 11/24/16 Gabapentin 300 Mg Gzwfdcy741 Mg PO BID Ref 0 10/13/16 Prochlorperazine Maleate (Compazine)10 Mg Awqyxa79 Mg PO TID 11/12/15 Nitroglycerin SL 0.4 Mg Tab.subl0.4 Mg SL PRN CHEST PAIN 09/10/15 oxyCODONE 5 Mg/5 Ml Rtlwaimy92-70 Mg PO Q4 PRN For Pain Ref 0 [id number] PRN PAIN 09/10/15 Metoprolol Succinate ER 50 Mg Tab.er.24h50 Mg PO DAILY Ref 0 09/10/[address] 40 Mg Tablet.dr40 Mg PO DAILY Ref 0 09/10/15 Sucralfate 1 Gm Tablet1 Gm PO TID 30 Days Ref 0 09/10/15 Lorazepam 2 Mg Tablet2 Mg PO HS PRN For Insomnia Ref 0 09/10/15 Discontinued Reported Medications Potassium Chloride ER 20 Meq Tablet.er20 Meq PO TID Ref 0 TAKE WITH FOOD 11/24/16 Magnesium Oxide (Magnesium)400 Mg Wzkzro753 Mg PO QPM 11/24/16 Isosorbide MN ER 30 Mg Tab.er.24h30 Mg PO DAILY 11/24/16 Zolpidem 10 Mg Tablet5-10 Mg PO HS PRN For Insomnia Ref 0 09/10/15 History History of ENT Problems?: No HEENT History: Denies:: Abnormal Airway Cataracts Difficult Intubation Dysphagia Glaucoma Hearing Problem Sinus Problem Teeth Condition: Missing Teeth Other HEENT Pertinent History: states has "soft teeth" Hx of Heart Problems?: Yes Cardiovascular History: Positive for:: Chest Pain (02/15/17) Edema (legs ) Hypertension Valvular Heart Disease Denies:: AICD Atrial Fibrillation Cardiac Surgery Congestive Heart Failure Heart Murmur Irregular Heartbeat Pacemaker Thrombophlebitis Hx of Respiratory Problem?: No Respiratory History: Positive for:: Dyspnea (02/15/2017) Denies:: Asthma COPD Chest Surgery Emphysema Hemoptysis Oxygen Administration Pneumonia Pulmonary Embolism Tuberculosis Use of C-PAP Machine Hx Neurologic Problems?: No Neurological History: Denies:: Alzheimer's Disease CVA Dementia Dizziness Headaches Multiple Sclerosis Parkinson's Disease Seizures Hx of GI Problems?: Yes Gastrointestinal History: Positive for:: Gastroesphageal Reflux (gastrectomy- 40% stomach removed) Gastrointestinal Bleeding Rectal Bleeding (dark red in color) Denies:: Diverticulitis Hepatitis Hiatal Hernia Hx of Problems?: Yes Genitourinary History: Positive for:: Kidney Stones (stones - right kidney ) Denies:: HX of Hemodialysis Urinary Tract Infection HX of Peritoneal Dialysis: No Female Hx: Positive for:: Endometriosis Problems with Breasts? (breast pain- current admission problem- left poss infection) Denies:: Currently Pelvic Inflammatory Skin History: Denies:: History Skin Disorders? Pressure Ulcers Hx Musculoskeletal Problems?: Yes Musculoskeletal History: Denies:: Back Injury Joint Replacement Musculoskeletal Trauma Systemic Lupus Hx of Psycho/Social Problems?: Yes Psycho Social History: Positive for:: Anxiety Hx Depression Denies:: Bipolar Disorder Suicide Attempt Hx Surgeries?: Yes (gastrectomy, bowel resection, Bilateral mastecomies) Hx Any Other Health Problems?: Yes Other History: Positive for:: Cancer (breast) Hospitalization Denies:: Endocrine Disease Thyroid Disease History Blood Transfusions: Positive for:: Accept Blood Products? Blood Transfusions (07/2014) Denies:: Blood Transfuse Reaction Hx Diabetes: NoBedside Blood Glucose: 94 Hx Alcohol Use: NoHx Substance Use: No Smoking Status: Former Smoker Have You Smoked inLast 12 mo: No Stop/Bang Treated for Sleep Apnea?: No Do You Have a CPAP Machine?: No S-Snoring: Do You Snore Loudly: No T-Tired: feel tired, fatigued: Yes O-Obsered: Observed not breath: No P-Blood Pressure: treated: Yes B- Body Mass Index > 35 kg/m2: No A- Age over 50: Yes N- Neck Large Circumference: No G- Gender Male: No DASHWAN Total Score: 3 DASHAWN Risk Assessment: High Risk, =/>3 Yes DASHAWN Category 2: Yes Risk Assessment Category Category 1A: Patient has history of documented sleep apnea, and HAS NOT received any narcotic, sedative or anesthesia administration during this stay. Category 1B: Patient has history of documented sleep apnea, and HAS received any narcotic , sedative or anesthesia administration during this stay Category 2: Patient has SUSPECTED Obstructive Sleep Apnea, and HAS received any narcotic , sedative or anesthesia administration during this stay. Category 3: Patient has SUSPECTED Obstructive Sleep Apnea and HAS NOT received narcotic, sedative or anesthesia administration during this stay. Category 4: Outpatient in Procedural Areas with known sleep apnea or who screen positive for High Risk via the STOP/BANG questionnaire. Exam Exam Vital Signs Vital Signs Date Time Temp Pulse Resp B/P Pulse Ox O2 Delivery O2 Flow Rate FiO2 02/16/17 17:40 36.4 84 16 144/75 89 Room Air 02/16/17 17:20 Supplement Oxygen 02/16/17 17:12 36.4 80 20 145/69 94 Nasal Cannula 3.00 02/16/17 12:02 36.4 72 14 115/65 94 Nasal Cannula 3.00 02/16/17 10:38 84 General Appearance: Alert, Oriented X3, Cooperative, No Acute Distress HEENT/AIRWAY: MP 2, Neck Movement (from), Mouth Opening (< 3 fb), Other Lungs: Clear to Auscultation, Normal Air Movement Heart: Exam Unremarkable, Regular Rate/Rhythm, No Murmurs/Rubs/Gallops Meds/Labs/Diagnostics Admission Meds Current Medications Sodium Chloride (Normal Saline) 500 ml @ 0 mls/hr Q0M ONCE IV Last administered on 02/15/17 20:42; Start 02/15/17 at 19:25; Stop 02/15/17 at 19:26 ; Status DC Lorazepam (Ativan Inj) 1 mg ONCE ONCE IVPUSH Last administered on 02/15/17 20 :45; Start 02/15/17 at 20:20; Stop 02/15/17 at 20:21; Status DC Pantoprazole (Protonix Inj) 40 mg ONCE ONCE IVPUSH Last administered on 21:46; Start 02/15/17 at 21:30; Stop 02/15/17 at 21:31; Status DC Morphine Sulfate (Morphine 2 mg/ mL Syringe) 2 mg ONCE ONCE IVPUSH Last administered on 02/15/17 21:48; Start 02/15/17 at 21:35; Stop 02/15/17 at 21:36 ; Status DC Pantoprazole 40 mg 40 mg BIDAC IVPUSH Last administered on 02/16/17 17:06; Start 02/16/17 at 07:30 Magnesium Sulfate 2 gm/Premix 50 ml @ 50 mls/hr ONCE ONCE IV Last administered on 02/16/17 04:56; Start 02/16/17 at 02:25; Stop 02/16/17 at 03:24 ; Status DC Sodium Chloride 100 ml @ ud STK-MED ONCE .ROUTE Last administered on 02/16/17 04:55; Start 02/16/17 at 04:50; Stop 02/16/17 at 04:52; Status DC Dextrose/Sodium Chloride (D5 1/2 Normal Saline) 1,000 ml @ 100 mls/hr Q10H IV Last administered on 02/16/17t 10:51; Start 02/16/17 at 10:30 Bedside Blood Glucose: 94 Labs Test 02/15/17 17:15 02/15/17 17:25 02/16/17 05:10 Hold Urine Received (Received) Magnesium Level 1.4mg/dL (1.6-2.6) Troponin T < 0.010ug/L (0.0-0.011) Amylase Level 24U/L (28-100) Lipase 29U/L (13-60) White Blood Count 8.2th/mm3 (3.8-10.1) Red Blood Count 4.10mil/mm3 (3.90-5.20) Hemoglobin 11.3g/dL (12.0-15.6) Hematocrit 37.5% (35.0-46.0) Mean Corpuscular Volume 91.5fL (81-100) Mean Corpuscular Hemoglobin 27.6pg (27.0-35.0) Mean Corpuscular Hemoglobin Concent 30.1% (32.0-37.0) Red Cell Distribution Width 15.6% (12.3-15.4) Platelet Count 301bil/L (150-400) Neutrophils (%) (Auto) 69.5% (40-74) Lymphocytes (%) (Auto) 18.5% (14-46) Monocytes (%) (Auto) 9.1% (4-12) Eosinophils (%) (Auto) 2.3% (0-5) Basophils (%) (Auto) 0.4% (0-3) Sodium Level 139mEq/L (134-144) Potassium Level 3.8mEq/L (3.5-5.2) Chloride Level 101mEq/L (97-108) Carbon Dioxide Level 25mmol/L (18-29) Blood Urea Nitrogen 13mg/dL (6-24) Creatinine 0.34mg/dL (0.57-1.00) Estimat Glomerular Filtration Rate 285mL/min (>59) Glucose Level 101mg/dL (60-99) Calcium Level 8.5mg/dL (8.5-10.1) Total Bilirubin 0.2mg/dL (0.0-1.2) Aspartate Amino Transf (AST/SGOT) 10U/L (0-50) Alanine Aminotransferase (ALT/SGPT) 7U/L (0-32) Alkaline Phosphatase 104U/L (25-150) Total Protein 4.4g/dL (6.4-8.4) Albumin 2.7g/dL (3.4-5.0) Plan Impression Patient chart reviewed, patient interviewed and anesthestic plan with risks, benefits, and alternatives discussed, and informed consent obtained. NPO Status: appropriate ASA Physical Status: ASA3 Severe Disease Anesthetic Plan: MAC Bene/Risks/Altern/Consents: Yes HP Complete Prior to Induction: Yes Blaine Anthony MD Feb 16, 2017 17:50
--- NOTE | 2017-02-16 18:18 | PCM.ENDEGD ---
EGD Date of Service: Feb 16, 2017 Physician Cali Ronquillo MD Pre Procedure Diagnosis: Gastric outlet obstruction Post Procedure Dx & Findings: Ulcerative gastric mucosa suspect ischemic ulcers. Procedure Esophagogastroduodenoscopy PROCEDURE IN DETAIL: After proper sedation, Olympus video endoscope was inserted into patient's mouth and esophagus was successfully intubated. Scope introduced esophagus. Esophagus showed normal shiny whitish mucosa consistent with squamous cell component. Z line was irregular inflamed and irritated.. The scope further advanced to the stomach. The stomach had significant amount of food material. There were some liquid foods which were suctioned aggressively. Anesthesia was present during the whole procedure. She did not wake up regurgitate cough or belch. The mucosa proximally appeared to be normal without any ulcer mass or lesion. As we get to the anastomosis site, we saw whitish exudate inflammation edema friability. The section of the stomach proximal to the anastomosis site appeared to be ulcerated inflamed edematous and friable. I was able to get into the small intestines. Intestine showed some redness irritation however no ulceration noted. The scope went back and forth into the small bowel. Easily. No clear obstruction noted. Scope was withdrawn and multiple biopsies obtained at the ulcerative mucosa and surrounding tissues. ALSO interesting is that after the biopsy did not see significant amount of bleeding. Impression I suspect ischemic ulcers gastropathy. No clear obstruction Visualization was compromised overall because of the food content. Recommendation Biopsy Nothing by mouth I do not think we need to redeployed the NG tube. Surgical consultation recommended. Continue IV Protonix 40 mg twice a day. Presedation Assessment Risks and Benefits Informed consent was obtained from the patient after all risks and benefits including but not limited to drug reaction, infection, pain, bleeding, perforation, as well as alternatives were discussed. Patient monitoring Continuous pulse oximetry, cardiac monitoring, blood pressure monitoring, IV access, and oxygen at 2L per nasal cannula. Complications There were no periprocedural complications identified. Post Procedure Plan Post Procedure Recommendations 1. Restrict activities today. 2. Resume normal activities in the morning. 3. Resume medications. 4. GERD behavioral modification: - Avoid fatty, acidic, spicy, large meals - Do not lie down after meals - Do not eat or drink anything for at least 2 1/2 hours before going to bed at night - Discontinue tobacco and alcohol - Decrease or avoid caffeine - Avoid chocolate and mints - Decrease weight - Avoid aspirin and non steroidal anti-inflammatory agents (NSAID) such as Aleve, Advil, Mobic, Naproxen, Ibuprofen, etc 5. Add proton pump inhibitor. Take 30 minutes before 1st meal of the day. 6. Patient informed of normal post procedure side effects as bloating, drowsiness, blood streaking in the stool 7. If gastric biopsy reveal H.pylori, continue with appropriate treatment 8. If small bowel biopsy reveals celiac, continue with appropriate treatment 9. Please don't hesitate to call me with any questions Kenroy Restrepo MD Feb 16, 2017 18:18
[2017-02-16] MEDS ORDERED: Lactated Ringer's 1,000 ML IV ONE (18:25)
--- NOTE | 2017-02-16 18:51 | PCM.ANEP2 ---
Post Anesthesia Evaluation ASA/CMS Post Anesthesia Date of Service: Feb 16, 2017 VS in Patient's Normal Range?: Yes Resp Stable; Airway Patent?: Yes CV Function & Hydration Stable: Yes Mental Status Recovered?: Yes Pain control Satisfactory?: Yes N/V Control Satisfactory?: Yes Blaine Anthony MD Feb 16, 2017 18:51
--- NOTE | 2017-02-16 18:51 | PCM.ANEP1 ---
Post Anesthesia Phase 1 PACU Phase 1 Assessment Date of Service: Feb 16, 2017 Vital Signs Vital Signs Date Time Temp Pulse Resp B/P Pulse Ox O2 Delivery O2 Flow Rate FiO2 02/16/17 17:40 36.4 84 16 144/75 89 Room Air 02/16/17 17:20 Supplement Oxygen 02/16/17 17:12 36.4 80 20 145/69 94 Nasal Cannula 3.00 02/16/17 12:02 36.4 72 14 115/65 94 Nasal Cannula 3.00 Anesthetic Administered: MAC Level of Alertness: Awake, talking LAKE's with Equal Strength: Yes Pain: No Nausea or Vomiting: No Oxygen Delivery: Nasal Cannula Lungs: Clear to Auscultation, Normal Air Movement Dermatome Level: Full Sensation Summary HR 71 BP 131/72 RR 15 SpO2 92% on 2L NC temp 36 C (skin) Blaine Anthony MD Feb 16, 2017 18:51
--- NOTE | 2017-02-17 00:06 | CONS ---
[address] [address] CONSULTATION REPORT PATIENT: SINA RYAN : 1960 MR#: [id number] ADMIT: 02/15/2017 JOB ID: [id number] DATE OF SERVICE: HISTORY OF PRESENT ILLNESS: It was a pleasure seeing the patient at [facility] for possible gastric outlet obstruction. This is a 56-year-old lady who has history of partial gastrectomy due to complication from ERCP with bile duct injury. She also has a history of chronic bleeding with anemia and small bowel follow-through. At home for the past few months, she has been having burning sensation in the stomach, lower abdomen and it was worsening throughout the month. The intensity was increasing. She started having nausea, vomiting. Burning sensation has gone worse. Then last night, she was having her regular dinner and she was vomiting. Pain got worse. She could not keep anything down. Even earlier that day when she ate breakfast, she could not eat very much and she got tired and her pain has gotten worse. Therefore, she came to the hospital. In the hospital, she came to the emergency department and the emergency department did a CT which showed marked distention of stomach suspicious for gastric outlet syndrome with postsurgical changes. There was also fluid filled small intestine with increased mucosa enhancement, question gastroenteritis, mild mesenteric lymphadenopathy. According to the CT, stomach was filled with debris, fluids. Again, fluid filled small bowel loops are noted on the right abdomen as well. Some enhancement of small intestines. Because of these findings, NG tube was placed and patient was admitted to the hospital. Today, she continued to have abdominal discomfort but some improvement of nausea was noted. Also, abdominal discomfort was also improved as well. She was getting IV morphine for pain control and she was given Zofran, pantoprazole. We also repeated the abdominal x-ray this morning which actually showed interval decrease in size of gastric lumen. While she was on the floor, the patient was placed on low intermittent suction and I also asked the patient's nurse to manually suck out the fluid as well. Afterward, minimal output from the NG tube noted. Currently, she is nauseated, but no vomiting. Abdominal pain is better. No fever, chills, headaches, blurred vision, dizziness, lightheadedness, chest pain, shortness of breath. No blood in the stools, black stools, diarrhea, constipation. PAST MEDICAL HISTORY: Includes bleeding ulcer, cardiomyopathy, peripheral arterial disease, fatty liver, high blood pressure, chronic anemia. PAST SURGICAL HISTORY: Partial gastrectomy, small bowel obstruction, laparoscopic surgery. FAMILY HISTORY: Mom with CHF. SOCIAL HISTORY: She denies tobacco, alcohol, drugs. MEDICATIONS: Include pantoprazole, Chloraseptic spray, morphine, Zofran, metoprolol, lorazepam, MiraLAX and senna. PHYSICAL EXAMINATION: Patient is alert, oriented, mild distress. Temp 36.4, pulse 84, respirations 16, blood pressure 144/75. Head and neck: No icterus. Lungs: Clear. Cardiovascular: Regular rate and rhythm. Normal S1, S2. Abdomen: Soft, diffuse tenderness without guarding, rebound, or firmness. Nondistended with decreased bowel sounds. Extremities: No pitting edema of the ankles. Skin shows no obvious jaundice. LABORATORY DATA: White count 8200, hemoglobin 11.3, platelets 301,000. Chemistry shows a BUN of 13, creatinine 0.34, normal LFTs, albumin is low at 2.7. IMPRESSION: This is a 56-year-old lady with history of partial gastrectomy with small bowel obstruction in the past, with patient coming in with abdominal pain, nausea, vomiting. CT showing distended stomach suspicious of gastric outlet obstruction. There is also evidence of gastroenteritis possibly. This could be due to gastric outlet obstruction, however, will take a look and see what her stomach appears to be. If we need to, we may need to dilate. However, we will look and see if we can make a diagnosis or possibly even intervention. Continue IV PPI, p.o., NG with low intermittent suction. MTDD
[2017-02-17] MEDS: Ondansetron 2 mg/mL 2 mL Inj IVPUSH PRN ×4 (03:28→20:29)
--- NOTE | 2017-02-17 04:59 | NUR ---
Pain/Nausea Pt has reported pain and nausea throughout the shift, morphine and zofran effective tor relief. Pt requested prn ativan for sleep aid and has been resting well. 3L O2 via NC r/t opiate use, saturations good.
[2017-02-17 06:33] VITALS: BP 116/59; PULSE 88; RESP 16; O2SAT 96
[2017-02-17 06:54] LABS: Mean Corpuscular Hemoglobin 26.8 pg (27.0-35.0); Mean Corpuscular Volume 90.8 fL (81-100)
[2017-02-17] MEDS: Pantoprazole 4 mg/mL 10 mL Inj IVPUSH SCH ×2 (07:41→16:31)
[2017-02-17] MEDS: Dextrose 5% 0.45% NaCl 1,000 ML IV SCH ×2 (07:42→17:36)
[2017-02-17] MEDS: Sucralfate 100 mg/mL 10 mL Suspension PO SCH ×4 (09:15→22:05)
[2017-02-17 10:21] VITALS: PULSE 79
[2017-02-17] MEDS ORDERED: Sucralfate 100 mg/mL 10 mL Suspension PO SCH (11:30)
--- NOTE | 2017-02-17 11:58 | NUR ---
MG notified via text of MG level 1.3.
[2017-02-17] MEDS ORDERED: Magnesium Sulf 4 Gm/100 mL H2O 4 GM in IV Premix 1 EACH IV ONE (12:35)
--- NOTE | 2017-02-17 12:45 | NUR ---
Paged surgeon Per Dr Moerira request for surgical consult. Addendum: 02/17/17 at 1305 by FABIEN DEL TORO RN Dr Gomez returned call and requested Dr Moreira or Dr Restrepo page him. Left message via text with Dr Moreira.
--- NOTE | 2017-02-17 12:53 | PCM.PNMED ---
Subjective Date of Service Feb 17, 2017 Subjective GASTROENTEROLOGY PROGRESS NOTE: Patient reports no change in her symptoms today. She still has persistent generalized abdominal pain with associated nausea. No vomiting. No overt signs of bleeding. She denies fever, chills, headaches, blurred vision, dizziness, lightheadedness, chest pain, or shortness of breath. No blood in the stools, black stools, diarrhea, constipation. Patient reports that she is sad to hear that she needs surgical consult. This is similar to what she experienced in the past and would be her 3rd abdominal surgery if it is indicated this time. Exam Vital Signs Vital Sign - Last Date Time Temp Pulse Resp B/P Pulse Ox O2 Delivery O2 Flow Rate FiO2 02/17/17 10:21 79 02/17/17 08:00 Supplement Oxygen 02/17/17 06:33 36.6 16 116/59 96 3.00 Intake and Output 02/16/17 02/16/17 02/17/17 Cumulative From/Thru 15:00 23:00 07:00 02/15/17 16:00 - 02/17/17 06:33 Intake Total 600 ml 1117 ml 2307 ml Output Total 2150 ml 2910 ml Balance -1550 ml 1117 ml -603 ml Intake IV Total 600 ml 1117 ml 2267 ml Tube Irrigant 40 ml Output Urine Total 1800 ml 2560 ml Gastric Drainage Total 350 ml 350 ml # Voids 5 6 Exam General: Patient was awake, alert, responding appropriately. Appears fatigue. Sitting up on bed. In no acute distress. HEENT: NCAT, EOMI, Neck soft supple, trachea midline. CV: +S1/S2, regular rate and rhythm, no murmurs auscultated Respiratory: CTAB, no wheezes, rales, rhonchi GI: soft, non-distended, diffuse tenderness to palpation all quadrants. No guarding or rebound tenderness. Normoactive bowel sounds. EXT: no clubbing, cyanosis, edema Skin: no jaundice. Neuro: Normal speech. Psych: mood and affect were appropriate IVs and Medications Medications Reviewed: Medications were reviewed in detail Lab and Diagnostics Result Diagram: 02/17/1745 02/17/17 0645 X-Rays, CTs and MRIs CXR, 02.15.17 IMPRESSION: No acute cardiopulmonary disease. CT abdomen and pelvis, 02.15.17 IMPRESSION: 1. Markedly distended stomach suspicious for gastric outlet obstruction. There are postsurgical changes in stomach. Please correlate with surgical history. 2. Fluid-filled small intestine with increased mucosal enhancement. This finding is nonspecific and could be secondary to gastroenteritis. 3. Small hypodense cortical nodule in the inferior pole of left kidney appears stable. 4. Mild mesenteric lymphadenopathy. 5. Hepatomegaly. 6. Fluid filled slightly distended distal esophagus, possibly secondary to gastroesophageal reflux. 12-lead ECG Normal Sinus Rhythm with LBBB Assessment & Plan This is a 56-year-old female with history of partial gastrectomy due to small bowel obstruction in the past, now coming in with abdominal pain, nausea, vomiting. CT showing distended stomach suspicious of gastric outlet obstruction. There is also evidence of gastroenteritis possibly. GI was consulted for the gastric outlet obstruction and performed an EGD on 02/16/17 that showed no clear obstruction, but high suspicion for ischemic ulcer gastropathy. Visualization was compromised overall because of the food content. Impression: 1. Gastric outlet obstruction possibly secondary to ischemia ulcer gastropathy 2. Tachycardia most likely PSVT prior to EGD. Anesthesia control with the heart rate during the EGD yesterday. And it was successfully done. We will defer the cardiac issue to the primary hospitalist service. Plans: - No clear obstruction on 02/16/17 EGD and thus dilation was not indicated. - The section of the stomach proximal to the anastomosis site appeared to be ulcered, inflamed, edematous, and friable. Multiple biopsies were obtained with no significant amount of bleeding. - Due to concern of possible ischemia ulcer gastropathy, Surgery was consulted with pending recommendations. - Abdominal x-ray yesterday showed interval decrease in size of gastric lumen, thus NG tube was removed. - Continue NPO - Continue IV Protonix 40mg BID and Sucralfate 1g QID. - Pain management and Zofran for symptomatic relief. Thank you for the consultation and do not hesitate to contact us for any question or concern. I saw him and examine the patient. Pylori of above. Pain Evaluation: Adequate Pain Control GI Prophylaxis: Proton Pump Inhibitor VTE Mechanical Devices: Intermittant Pneumatic CD Resuscitation Status: CPR: Attempt Resuscitation Sal Jaffe DO Feb 17, 2017 12:53 Kenroy Restrepo MD Feb 17, 2017 16:03 Sal Jaffe DO Feb 17, 2017 12:53 -Continue to monitor potassium and magnesium Disposition: Patient's stomach is currently being decompressed at this time. General surgery is following. GI Prophylaxis: Proton Pump Inhibitor VTE Mechanical Devices: Intermittant Pneumatic CD Resuscitation Status: CPR: Attempt Resuscitation Sal Jaffe DO Feb 17, 2017 12:53
--- NOTE | 2017-02-17 14:54 | PCM.CONSUR ---
Subjective Date of Service: Feb 17, 2017 History of Present Illness Ms. Natalya Cervantes is a pleasant 56 year old lady with PMHx significant for [place] in 2012, Bilateral mastectomy, and multiple gastrectomys for severe ulceration. She presents here Thursday night 02/15/17 with 10/10 severe LUQ abdominal pain, nausea, and vomiting. EGD was preformed by GI and showed several sites of severe ulceration with concerns of Ischemic origin. Patient reports the pain, nausea and vomiting have been worsening now for 3 months. She states daily LUQ and lower abdominal pain, on average is 6 /10 and currently 8/10, burning in nature, with nausea, vomiting, and hematemesis roughly 1-2 hours following meals. She also reports 3 mo hx of daily bright red blood in stools (she reports this is the first time shes told anyone.) She is desperate for relief and "can't continue to live this way." She wants surgical options. She reports mild dizziness, nausea, vomiting, hematochezia, hematemesis, and abdominal pain. Denies shortness of breath, chest pain, syncope, constipations, diarrhea. 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 Lives at home with boyfriend "Vince.' Denies ETOH/Tobacco/rec drugs. FMHx - of Crohn's, fibromyalgia. Reason for Consultation Gastric ulceration with concern of ischemic etiology. Allergy Allergies: Coded Allergies: ciprofloxacin (Verified Allergy, Severe, HIVES, 02/15/17) adhesive tape (Verified Adverse Reaction, Intermediate, WELTS, 02/15/17) Medications Last Dose Blood Thinner: Feb 15, 2017 Hypertension Medication: Yes Home Meds Incl Beta Blockers: Yes Amlodipine (Amlodipine) 10 Mg Tablet 10 MG PO DAILY (Reported) Last Taken: Unknown Dose on 02/14/17 0800 Atorvastatin (Lipitor) 10 Mg Tab 10 MG PO DAILY (Reported) Last Taken: Unknown Dose on 02/14/17 2100 Cholecalciferol (Vitamin D3) ( Vitamin D) 50,000 Unit Capsule 50,000 UNIT PO WEEKLY (Reported) Last Taken: Unknown Dose on 02/15/17 0800 Docusate Sodium (Docusate Sodium) 250 Mg Capsule 250 MG PO DAILY PRN PRN For Constipation (Reported) Last Taken: Unknown Dose on Unknown Date & Time Gabapentin (Gabapentin) 300 Mg Capsule 300 MG PO BID (Reported) Last Taken: Unknown Dose on 02/14/17 0800 Ibuprofen (Ibuprofen) 800 Mg Tablet 800 MG PO TID PRN PRN For Pain (Reported) Last Taken: Unknown Dose on 02/14/17 Lorazepam (Lorazepam) 2 Mg Tablet 2 MG PO HS PRN PRN For Insomnia (Reported) Last Taken: Unknown Dose on 02/14/17 2100 Magnesium Oxide (Magnesium) 400 Mg Tablet 400 MG PO BID (Reported) Last Taken: Unknown Dose on 02/14/17 1700 Metoclopramide (Metoclopramide) 10 Mg Tablet 10 MG PO TID (Reported) Last Taken: Unknown Dose on 02/15/17 Metoprolol Succinate ER (Metoprolol Succinate ER) 50 Mg Tab.er.24h 50 MG PO DAILY (Reported) Last Taken: Unknown Dose on 02/15/17 0800 Nitroglycerin SL (Nitroglycerin SL ) 0.4 Mg Tab.subl 0.4 MG SL PRN (Reported) Last Taken: Unknown Dose on 02/15/17 Oxybutynin Chloride ER (Oxybutynin Chloride ER) 5 Mg Tab.er.24 5 MG PO DAILY (Reported) Last Taken: Unknown Dose on 02/15/[address] (Pantoprazole [address]) 40 Mg Tablet.dr 40 MG PO DAILY (Reported) Last Taken: Unknown Dose on 02/14/17 0800 Prochlorperazine Maleate (Compazine ) 10 Mg Tablet 10 MG PO TID (Reported) Last Taken: Unknown Dose on 02/15/17 Ranitidine (Ranitidine) 300 Mg Tablet 300 MG PO HS (Reported) Last Taken: Unknown Dose on 02/14/17 2100 Sucralfate (Sucralfate) 1 Gm Tablet 1 GM PO TID (Reported) Last Taken: Unknown Dose on 02/15/17 Tizanidine (Tizanidine) 2 Mg Tablet 2 MG PO TID (Reported) Last Taken: Unknown Dose on 02/14/17 2100 oxyCODONE (oxyCODONE) 5 Mg/5 Ml Solution 10-20 MG PO Q4 PRN PRN For Pain (Reported) [id number] PRN PAIN Last Taken: Unknown Dose on 02/15/17 0800 Discontinued Medications Isosorbide MN ER (Isosorbide MN ER) 30 Mg Tab.er.24h 30 MG PO DAILY (Reported) Magnesium Oxide (Magnesium) 400 Mg Tablet 400 MG PO QPM (Reported) Potassium Chloride ER (Potassium Chloride ER) 20 Meq Tablet.er 20 MEQ PO TID ( Reported) TAKE WITH FOOD Zolpidem (Zolpidem) 10 Mg Tablet 5-10 MG PO HS PRN PRN For Insomnia (Reported) Past Surgical History Surgeries: Yes (gastrectomy, bowel resection, Bilateral mastecomies) Patient/Family Past Surgical: Positive for:: Accept Blood Products?, Anesthesia Reactions (wakes during surgery- has happened twice ), Blood Transfusions (07/2014), Denies:: Blood Transfuse Reaction, Malignant Hyperthermia Other Pertinent Data: Hx of 2x vagotomy / antrectomy / buzz-en-Y. 2012, 2014? Bilateral mastectomy. Many EGD's Colonoscopys Social History Occupation: Disability Hx Alcohol Use: No Hx Substance Use: No Hx Tobacco Use: No PMH HEENT History History of ENT Problems?: No HEENT History: Denies:: Abnormal Airway Cataracts Difficult Intubation Dysphagia Glaucoma Hearing Problem Sinus Problem Other HEENT Pertinent History: states has "soft teeth" Cardiovascular History History of Heart Problems?: Yes Cardiovascular History: Positive for:: Chest Pain (02/15/17) Edema (legs ) Hypertension Valvular Heart Disease Denies:: AICD Atrial Fibrillation Cardiac Surgery Congestive Heart Failure Heart Murmur Irregular Heartbeat Pacemaker Thrombophlebitis Respiratory History of Respiratory Problem: No Respiratory History: Positive for:: Dyspnea (02/15/2017) Denies:: Asthma COPD Chest Surgery Emphysema Hemoptysis Oxygen Administration Pneumonia Pulmonary Embolism Tuberculosis Use of C-PAP Machine Neurological History Hx Neurologic Problems?: No Neurological History: Denies:: Alzheimer's Disease CVA Dementia Dizziness Headaches Multiple Sclerosis Parkinson's Disease Seizures Gastrointestinal History HX of GI Problems?: Yes Gastrointestinal History: Positive for:: Gastroesphageal Reflux (gastrectomy- 40% stomach removed) Gastrointestinal Bleeding Rectal Bleeding (dark red in color) Denies:: Diverticulitis Hepatitis Hiatal Hernia Genitourinary History Hx of Gu Problems?: Yes Genitourinary History: Positive for: Kidney Stones (stones - right kidney ) Denies: HX of Hemodialysis Urinary Tract Infection Female/Male History Reproductive History Female: Positive for: Endometriosis Problems with Breasts? (breast pain- current admission problem- left poss infection) Denies: Currently ? Pelvic Inflammatory DX Skin History Skin History: Denies:: History Skin Disorders? Pressure Ulcers Musculoskeletal History Hx Musculoskeletal Problems?: Yes Musculoskeletal History: Denies:: Back Injury Joint Replacement Musculoskeletal Trauma Systemic Lupus Psycho Social History Hx of Psycho/Social Problems?: Yes Psycho Social History: Positive for:: Anxiety Hx Depression Denies:: Bipolar Disorder Suicide Attempt Other History Hx Any Other Health Problems?: Yes Other History: Positive for:: Cancer (breast) Hospitalization Denies:: Endocrine Disease Thyroid Disease Diabetes: NoBedside Blood Glucose: 94 Social History Hx Alcohol Use: NoHx Substance Use: NoHx Tobacco Use: No Smoking Status: Former Smoker Living Arrangement: with Family Objective Exam Vital Signs & I/O Vital Sign- Last 8 Hours Date Time Temp Pulse Resp B/P Pulse Ox O2 Delivery O2 Flow Rate FiO2 02/17/17 10:21 79 02/17/17 08:00 Supplement Oxygen Intake and Output- Last 8 Hour 02/17/17 Cumulative From/Thru 07:00 02/15/17 16:00 - 02/17/17 06:33 Intake Total 1117 ml 2307 ml Output Total 2910 ml Balance 1117 ml -603 ml Intake IV Total 1117 ml 2267 ml Tube Irrigant 40 ml Output Urine Total 2560 ml Gastric Drainage Total 350 ml # Voids 5 6 Lab & Micro Results Laboratory Tests Test 02/17/17 06:45 White Blood Count 5.4th/mm3 (3.8-10.1) Red Blood Count 4.36mil/mm3 (3.90-5.20) Hemoglobin 11.7g/dL (12.0-15.6) Hematocrit 39.6% (35.0-46.0) Mean Corpuscular Volume 90.8fL (81-100) Mean Corpuscular Hemoglobin 26.8pg (27.0-35.0) Mean Corpuscular Hemoglobin Concent 29.5% (32.0-37.0) Red Cell Distribution Width 15.1% (12.3-15.4) Platelet Count 298bil/L (150-400) Sodium Level 140mEq/L (134-144) Potassium Level 3.7mEq/L (3.5-5.2) Chloride Level 102mEq/L (97-108) Carbon Dioxide Level 25mmol/L (18-29) Blood Urea Nitrogen 8mg/dL (6-24) Creatinine 0.37mg/dL (0.57-1.00) Estimat Glomerular Filtration Rate 259mL/min (>59) Glucose Level 106mg/dL (60-99) Calcium Level 8.4mg/dL (8.5-10.1) Magnesium Level 1.3mg/dL (1.6-2.6) Total Bilirubin 0.2mg/dL (0.0-1.2) Aspartate Amino Transf (AST/SGOT) 9U/L (0-50) Alanine Aminotransferase (ALT/SGPT) 7U/L (0-32) Alkaline Phosphatase 106U/L (25-150) Total Protein 4.4g/dL (6.4-8.4) Albumin 2.7g/dL (3.4-5.0) Lipase 25U/L (13-60) Result Diagram: 02/17/1745 02/17/1745 Review of Systems: Constitutional: Negative, except as otherwise mentioned in the history above. Ophthalmologic: Negative, except as otherwise mentioned in the history above. Cardiovascular: Negative, except as otherwise mentioned in the history above. Respiratory: Negative, except as otherwise mentioned in the history above. Gastrointestinal: Negative, except as otherwise mentioned in the history above. Genitourinary: Negative, except as otherwise mentioned in the history above. Musculoskeletal: Negative, except as otherwise mentioned in the history above. Neurological: Negative, except as otherwise mentioned in the history above. Psychiatric: Negative, except as otherwise mentioned in the history above. Hematologic/Lymphatic: Negative, except as otherwise mentioned in the history above. Allergic/Immunologic: Negative, except as otherwise mentioned in the history above. H&P Surgical Exam Exam General: Alert, Oriented X3, Cooperative, No Acute Distress Additional Information General: Patient was awake, alert, responding appropriately. Appears fatigued. Sitting up on bed. In no acute distress, but appears desperate. HEENT: EOMI, Neck soft supple, trachea midline. CV: regular rate and rhythm, no murmurs , rubs, gallops Respiratory: CTAB, no wheezes, rales, rhonchi GI: soft, non-distended, TTP in LUQ but also diffuse tenderness to palpation all quadrants. No guarding or rebound tenderness. Normoactive bowel sounds. EXT: no clubbing, cyanosis, edema Skin: no jaundice. Neuro: Normal speech. Psych: mood and affect were appropriate Assessment & Plan Assessment Extensive Gastric ulceration, possibly ischemic etiology Nausea, vomiting, abdominal pain. Hx Breast Ca, Hematemesis Hematochezia VTE Mechanical Devices: Intermittant Pneumatic CD VTE Med Contraindicatio: Bleeding (chronic GI bleeding) Plan: Not considering surgery at this time. Patient has several previous complicated gastric surgeries with unknown anastamosis. We are awaiting surgical op reports from [facility]. Recommend: Upper GI to establish anatomy. Gastric emptying study. Consider later on doing Gastrin levels (will need to hold ppi for 1 week and H2 block for 3 days before study.) Start clear liquids for tonight. Take it slow. Other medications to be managed by Primary and GI discretion. Resuscitation Status: CPR: Attempt Resuscitation WILIAN GLOVER DO Feb 17, 2017 14:54
--- NOTE | 2017-02-17 15:26 | PCM.PNMED ---
Subjective Date of Service Feb 17, 2017 Subjective Patient was seen and examined at bedside today. Patient denies any chest pain, shortness of breath, nausea, diarrhea. The patient still complains of significant nausea and abdominal pain. Overnight events: None Exam Vital Signs Vital Sign - Last Date Time Temp Pulse Resp B/P Pulse Ox O2 Delivery O2 Flow Rate FiO2 02/17/17 10:21 79 02/17/17 08:00 Supplement Oxygen 02/17/17 06:33 36.6 16 116/59 96 3.00 Intake and Output 02/16/17 02/16/17 02/17/17 Cumulative From/Thru 15:00 23:00 07:00 02/15/17 16:00 - 02/17/17 06:33 Intake Total 600 ml 1117 ml 2307 ml Output Total 2150 ml 2910 ml Balance -1550 ml 1117 ml -603 ml Intake IV Total 600 ml 1117 ml 2267 ml Tube Irrigant 40 ml Output Urine Total 1800 ml 2560 ml Gastric Drainage Total 350 ml 350 ml # Voids 5 6 Exam Physical Exam: GEN: Patient was awake, alert, responding appropriately to questions HEENT: Pupils equal round and reactive to light, extraocular eye muscles intact , Neck soft supple, trachea midline, nomocephalic/atraumatic CV: +S1/S2, regular rate and rhythm, no murmurs auscultated Respiratory: CTAB, no wheezes, rales, rhonchi GI: +bowel sounds x4, soft, compressible, significant tenderness to palpation EXT: no clubbing, cyanosis, edema Neuro: Cranial nerves II-XII grossly intact Psych: mood and affect were appropriate IVs and Medications Medications Reviewed: Medications were reviewed in detail Lab and Diagnostics Result Diagram: 02/17/1745 02/17/17644 X-Rays, CTs and MRIs CXR, 02.15.17 IMPRESSION: No acute cardiopulmonary disease. CT abdomen and pelvis, 02.15.17 IMPRESSION: 1. Markedly distended stomach suspicious for gastric outlet obstruction. There are postsurgical changes in stomach. Please correlate with surgical history. 2. Fluid-filled small intestine with increased mucosal enhancement. This finding is nonspecific and could be secondary to gastroenteritis. 3. Small hypodense cortical nodule in the inferior pole of left kidney appears stable. 4. Mild mesenteric lymphadenopathy. 5. Hepatomegaly. 6. Fluid filled slightly distended distal esophagus, possibly secondary to gastroesophageal reflux. 12-lead ECG Normal Sinus Rhythm with LBBB Assessment & Plan 56yo woman with history of partial gastrectomy, chronic GI bleed, SBO presents with increasing abdominal pain, nausea, and vomiting for the last month, intolerable today. CT suggests gastric outlet obstruction, distension of distal esophagus. Gastric Outlet Obstruction, POA, confirmed by CT with clinical correlation of symptoms. -NPO -NG tube discontinued -Pain control with morphine IV -Endoscopy yesterday showing ischemic ulcerations in the stomach -Consult general surgery (Dr. Gomez) Nausea and Vomiting -Continue Ondansetron 4mg IV PRN GERD -Pantoprazole 40mg IV push BIDAC Hypovolemia -Continue IV fluids Hypomagnesemia at 1.4 on admission. Chronic hypomagnesemia on replacement therapy. -Patient was repleted with 2 g of mag sulfate -Follow up mag level in the morning was 1.3 -Replete with 4 g of mag sulfate (02/17/17) Hypokalemia (chronic on replacement therapy) -Currently stable and within normal ranges Insomnia with anxiety -Hold home dose of zolpidem patient is currently nothing by mouth -Lorazepam 2mg IV q4h PRN Hypertension (controlled) -Hold home medications and start again as needed if/when patient can tolerate orals HLD -Hold home medications as patient is nothing by mouth History of Cardiomyopathy with chronic hypomagnesemia and hypokalemia -Currently stable -Patient currently on telemetry -Continue to monitor potassium and magnesium Disposition: Patient had an endoscopy yesterday with GI and found that the patient had ischemic ulcers in the stomach. At this time they recommend a consult with general surgery for further evaluation as these lesions may need to be operated on and excised sooner rather than later. GI Prophylaxis: Proton Pump Inhibitor VTE Mechanical Devices: Intermittant Pneumatic CD Resuscitation Status: CPR: Attempt Resuscitation Tamiko Moreira DO Feb 17, 2017 15:26
[2017-02-17 18:28] VITALS: BP 121/65; PULSE 94; RESP 20; O2SAT 91
--- NOTE | 2017-02-17 18:41 | CONS ---
[address] [address] CONSULTATION REPORT PATIENT: SIAN RYAN : 1960 MR#: [id number] ADMIT: 02/15/2017 JOB ID: [id number] DATE OF SERVICE: 02/17/2017 REASON FOR CONSULTATION: The patient was seen in consultation at the request of Dr. Restrepo regarding further evaluation and management of possible ischemic gastritis. The patient was seen and examined with the resident, and a plan was formulated together. For full details, please see his note. In brief, she is a 56-year-old female with a complex surgical history who presented to the ED a day or so ago with worsening abdominal pain. She tells me that she had some kind of gastric ulcer surgery in 2013 for ulcers that were refractory to medical management. She believes this was some kind of gastrectomy, though she is unsure. This was done at [facility]. She tells me she subsequently developed some kind of bowel obstruction requiring a repeat operation in 2014. Per Dr. Restrepo, she has had some kind of bile duct injury during the cholecystectomy and this required an operation. She has been on high-dose antacid medications omeprazole and ranitidine and Carafate as well as Reglan and Compazine. Over the past few months, she has developed progressively worsening acid reflux symptoms with burning in the back of her throat as well as coughing up phlegm at nighttime with associated vomiting up blood and mucus. She has been experiencing worsening pain in her lower abdomen. This eventually reached a point on the where she felt the need to come to the emergency department. She was admitted to the hospital after a CT scan showed gastric distention consistent with gastric outlet obstruction. Dr. Restrepo performed upper endoscopy yesterday, and I have reviewed the images from that study with him. Biopsies were taken. He was concerned about the possibility of ischemic gastritis. However, on the CT scan obtained on the , I can easily see the celiac vessels and they seem well perfused. In summary, this is a 56-year-old female with multiple prior surgeries involving the stomach who has worsening symptoms of reflux and abdominal pain with unclear endoscopic findings. At this point, it is completely unclear what is going on with this patient. In order to better understand her process, I need to get a copy of her outside operative reports. It certainly is strange for the patient to have a gastric ulcer surgery in 2014 and this makes one wonder about . To my knowledge, she has never had a gastrin level checked. The other possibility is that she if she had a Billroth-II, she may have retained antrum with unsuppressed gastric secretion and now has developed a marginal ulcer. Another possibility is she may just have gastroparesis and has significant acid suppression leading to symptoms of severe reflux as well as Millie gastritis. All of that is to say that there is very limited information available. RECOMMENDATIONS: At this point, I recommend: 1. Obtain a copy of the outside operative reports. 2. Obtain a barium swallow to better delineate her anatomy. 3. Eventually obtain a gastric emptying study. 4. Possibly obtain a gastrin level off all antacid medications including off PPIs for up to a week and off the antihistamines for at least 2-3 days. At this point, I will continue to follow along but defer management to the hospitalist and gastroenterology teams.
--- NOTE | 2017-02-17 19:04 | NUR ---
pain/nausea Morphine given q3 hours up to 07/12. Reports helps only for a short amount of time. c/o nausea, zofran 8 mg given x2 with effective relief. no emesis noted. Clear liquid started for dinner
[2017-02-17 22:08] VITALS: BP 105/67; PULSE 85; RESP 18; O2SAT 92
[2017-02-18] VITALS (8 sets, daily range): BP systolic 111–148; BP diastolic 67–77; PULSE 73–90; RESP 16–18; O2SAT 91–93
[2017-02-18] MEDS: Ondansetron 2 mg/mL 2 mL Inj IVPUSH PRN ×4 (03:15→18:07)
[2017-02-18] MEDS: Dextrose 5% 0.45% NaCl 1,000 ML IV SCH ×2 (03:34→12:56)
--- NOTE | 2017-02-18 06:25 | NUR ---
Shift note Medicated x3 for pain and x2 for anxiety & nausea otherwise uneventful night up ind to BR
[2017-02-18] MEDS: Pantoprazole 4 mg/mL 10 mL Inj IVPUSH SCH ×2 (07:48→16:24)
[2017-02-18] MEDS: Sucralfate 100 mg/mL 10 mL Suspension PO SCH ×3 (07:48→16:24)
[2017-02-18 08:11] LABS: Mean Corpuscular Volume 89.8 fL (81-100)
[2017-02-18 09:07] LABS: Magnesium 1.6 mg/dL (1.6-2.6)
--- NOTE | 2017-02-18 11:17 | PCM.PNMED ---
Subjective Date of Service Feb 18, 2017 Subjective She feels her abdominal pain is relatively the same. She still has burning sensation when she eats. However she has not vomited with clear liquid diet. Exam Vital Signs Vital Sign - Last Date Time Temp Pulse Resp B/P Pulse Ox O2 Delivery O2 Flow Rate FiO2 02/18/17 10:47 90 02/18/17 07:45 36.6 16 111/67 91 Room Air 02/17/17 06:33 3.00 Intake and Output 02/17/17 02/17/17 02/18/17 Cumulative From/Thru 15:00 23:00 07:00 02/15/17 16:00 - 02/18/17 06:20 Intake Total 1091 ml 1481 ml 4879 ml Output Total 2910 ml Balance 1091 ml 1481 ml 1969 ml Intake Oral 240 ml 240 ml IV Total 1091 ml 1241 ml 4599 ml Tube Irrigant 40 ml Output Urine Total 2560 ml Gastric Drainage Total 350 ml # Voids 6 4 16 # Bowel Movements 0 0 Exam Patient is alert oriented mild distress Head and neck no icterus Lungs clear Cardiovascular regular rate and rhythm with normal S1-S2 Abdomen soft and minimally distended decreased tenderness no guarding rebound firmness with bowel sounds. Extremities no pitting edema to ankles Skin shows no jaundice. Lab and Diagnostics Result Diagram: 02/18/17 0755 02/18/17 0755 X-Rays, CTs and MRIs CXR, 02.15.17 IMPRESSION: No acute cardiopulmonary disease. CT abdomen and pelvis, 02.15.17 IMPRESSION: 1. Markedly distended stomach suspicious for gastric outlet obstruction. There are postsurgical changes in stomach. Please correlate with surgical history. 2. Fluid-filled small intestine with increased mucosal enhancement. This finding is nonspecific and could be secondary to gastroenteritis. 3. Small hypodense cortical nodule in the inferior pole of left kidney appears stable. 4. Mild mesenteric lymphadenopathy. 5. Hepatomegaly. 6. Fluid filled slightly distended distal esophagus, possibly secondary to gastroesophageal reflux. 12-lead ECG Normal Sinus Rhythm with LBBB Assessment & Plan This is a 56-year-old female with history of partial gastrectomy due to small bowel obstruction in the past, now coming in with abdominal pain, nausea, vomiting. CT showing distended stomach suspicious of gastric outlet obstruction. There is also evidence of gastroenteritis possibly. EGD on that showed no clear obstruction, but high suspicion for ischemic ulcer gastropathy or ulcerative gastropathy biopsy still pending. Visualization was compromised overall because of the food content. Impression: 1. Erosive ulcerative anastomosis site. Scope did easily pass into the duodenum. Visualization again significantly compromised because of the food content. Plans: - No clear obstruction on 02/16/17 EGD and thus dilation was not indicated. I understand small bowel follow-through is going to be done. We will see what that shows and based on this, we can take another look with EGD when the stomach content is cleared. - The section of the stomach proximal and distal to the anastomosis site appeared to be ulcered, inflamed, edematous, and friable. Multiple biopsies were obtained with no significant amount of bleeding. Biopsy still pending - If she does not vomit, consider advancing to full liquid diet after the small bowel follow-through. - If she has issues of vomiting, consider IV erythromycin 250 mg then consume full liquid diet 20 minutes later. Try this twice a day. I will do this for no more than 3 days. While this occurs, I would make sure she is on a telemetry. - Continue IV Protonix 40mg BID and Sucralfate 10 cc liquid QID. - Pain management and Zofran for symptomatic relief. GI Prophylaxis: Proton Pump Inhibitor VTE Mechanical Devices: Intermittant Pneumatic CD Resuscitation Status: CPR: Attempt Resuscitation Kenroy Restrepo MD Feb 18, 2017 11:16
--- NOTE | 2017-02-18 13:56 | NUR ---
Social Work Note - Continued Discharge Planning: D/A: The Pt is a 56 y/o female that is now on day 3 of admission for gastric outlet obstruction. The Pt is not medically stable for discharge, GI and Surgery involved and following. Pt discussed in rounds this morning, likely to be hospitalized for a few more days. SW will continue to follow for needs. P: Pt not medically stable for discharge, likely to discharge in a few more days. GI and Surgery involved and following. SW will continue to follow for needs. SURESH [employer] Addendum: 02/18/17 at 1650 by KATINA KATE SS SW has reviewed note. SURESH Zhu
[2017-02-18] MEDS ORDERED: Erythromycin Inj 250 MG in 0.9% Sodium Chloride 100 ML IV ONE (14:05)
--- NOTE | 2017-02-18 14:10 | PROG NOTE ---
[address] [address] PROGRESS NOTE PATIENT: SINA RYAN : 1960 MR#: [id number] ADMIT: 02/15/2017 JOB ID: [id number] DATE: 02/18/2017 PROGRESS NOTE: This morning, the patient tells me that the medication is helping with her abdominal pain. She has been tolerating clear liquids without nausea or vomiting. OBJECTIVE: She has remained afebrile and hemodynamically normal. This morning, she is alert and oriented and comfortable. Abdomen is soft, nontender, nondistended. She has a total of 240 mL of oral intake recorded. LABORATORY STUDIES: Her white blood cell count remains normal at 7.6. Hematocrit is stable at 40.6. Creatinine is fine at 0.4. ASSESSMENT AND PLAN: This is a 56-year-old female with complex surgical history, admitted with abdominal pain and symptoms of reflux and peptic ulcer disease. At this point, I have made no changes to my recommendations. I will were reviewed the outside operative course when available and continue to recommend further diagnostic evaluations as outlined yesterday.
[2017-02-18] MEDS ORDERED: Magnesium Sulf 2 Gm/50mL Water 2 GM in IV Premix 1 EACH IV ONE (14:15)
--- NOTE | 2017-02-18 14:20 | PCM.PNMED ---
Subjective Date of Service Feb 18, 2017 Subjective Patient was seen and examined at bedside today. Patient denies any chest pain, shortness of breath, vomiting, diarrhea. Patient still complains of nausea and epigastric pain/GERD symptoms patient also complains of generalized abdominal pain as well. Overnight events: None Exam Vital Signs Vital Sign - Last Date Time Temp Pulse Resp B/P Pulse Ox O2 Delivery O2 Flow Rate FiO2 02/18/17 10:47 90 02/18/17 07:45 36.6 16 111/67 91 Room Air 02/17/17 06:33 3.00 Intake and Output 02/17/17 02/17/17 02/18/17 Cumulative From/Thru 15:00 23:00 07:00 02/15/17 16:00 - 02/18/17 06:20 Intake Total 1091 ml 1481 ml 4879 ml Output Total 2910 ml Balance 1091 ml 1481 ml 1969 ml Intake Oral 240 ml 240 ml IV Total 1091 ml 1241 ml 4599 ml Tube Irrigant 40 ml Output Urine Total 2560 ml Gastric Drainage Total 350 ml # Voids 6 4 16 # Bowel Movements 0 0 Exam Physical Exam: GEN: Patient was awake, alert, responding appropriately to questions HEENT: Pupils equal round and reactive to light, extraocular eye muscles intact , Neck soft supple, trachea midline, nomocephalic/atraumatic CV: +S1/S2, regular rate and rhythm, no murmurs auscultated Respiratory: CTAB, no wheezes, rales, rhonchi GI: +bowel sounds x4, soft, compressible, tender to palpation EXT: no clubbing, cyanosis, edema Neuro: Cranial nerves II-XII grossly intact Psych: mood and affect were appropriate IVs and Medications Medications Reviewed: Medications were reviewed in detail Lab and Diagnostics Result Diagram: 02/18/17 0755 02/18/17 0755 X-Rays, CTs and MRIs CXR, 02.15.17 IMPRESSION: No acute cardiopulmonary disease. CT abdomen and pelvis, 02.15.17 IMPRESSION: 1. Markedly distended stomach suspicious for gastric outlet obstruction. There are postsurgical changes in stomach. Please correlate with surgical history. 2. Fluid-filled small intestine with increased mucosal enhancement. This finding is nonspecific and could be secondary to gastroenteritis. 3. Small hypodense cortical nodule in the inferior pole of left kidney appears stable. 4. Mild mesenteric lymphadenopathy. 5. Hepatomegaly. 6. Fluid filled slightly distended distal esophagus, possibly secondary to gastroesophageal reflux. 12-lead ECG Normal Sinus Rhythm with LBBB Assessment & Plan 56yo woman with history of partial gastrectomy, chronic GI bleed, SBO presents with increasing abdominal pain, nausea, and vomiting for the last month, intolerable today. CT suggests gastric outlet obstruction, distension of distal esophagus. Gastric Outlet Obstruction, POA, confirmed by CT with clinical correlation of symptoms. -Clear liquid diets with possible advancement to full liquid diet later today -Give 250 mg IV of erythromycin 20 minutes prior to starting liquid diet -Barium swallow study as per requested by general surgery -Pain control with morphine IV -Endoscopy 02/16/17 showing ischemic ulcerations in the stomach -Consult general surgery (Dr. Gomez) Nausea and Vomiting -Continue Ondansetron 4mg IV PRN GERD -Pantoprazole 40mg IV push BIDAC -Carafate 10 mL 4 times a day when necessary Hypovolemia -Continue IV fluids Hypomagnesemia at 1.4 on admission. Chronic hypomagnesemia on replacement therapy. -Patient was repleted with 2 g of mag sulfate -Follow up mag level in the morning was 1.3 -Replete with 4 g of mag sulfate (02/17/17) -Magnesium 1.6 today replete with 2 g of magnesium Hypokalemia (chronic on replacement therapy) -Currently stable and within normal ranges Insomnia with anxiety -Restart her home dose of zolpidem -Lorazepam 2mg IV q4h PRN Hypertension (controlled) -Hold home medications and start again as needed if/when patient can tolerate orals HLD -Hold home medications as patient is nothing by mouth History of Cardiomyopathy with chronic hypomagnesemia and hypokalemia -Currently stable -Patient currently on telemetry -Continue to monitor potassium and magnesium Disposition: At this time gastroenterology and general surgery have several things that they want to do with the patient however some of this can be followed up as an outpatient. GI like the patient follow-up within 2 weeks. At this time we will obtain a barium swallow study for the patient and then attempt to re-feed her. If she is able to tolerate a full liquid diet that she will be able to be discharged home tomorrow. Patient does still have a significant amount of pain however at this time we will attempt to control the patient's pain until she is able to get more definitive answers with these multiple outpatient studies. GI Prophylaxis: Proton Pump Inhibitor VTE Mechanical Devices: Intermittant Pneumatic CD Resuscitation Status: CPR: Attempt Resuscitation Tamiko Moreira DO Feb 18, 2017 14:20
--- NOTE | 2017-02-18 15:46 | NUR ---
NUTRITION ASSESSMENT: ASSESS: 56 YO female admitted for nausea, vomiting and abd. pain. Pt s/p EGD on 02/16 which showed high suspicion for ischemic ulcerations in the stomach. Small bowel follow through and barium swallow study are pending. Diet was advanced to full liquids today, no po intake has yet been reported. PMHx: Distal partial gastrectomy, chronic GI bleed, anemia, SBO s/p laparoscopic surgery, cardiomyopathy, HTN, HLD. LABS: Reviewed. Cr .40, Glu 111, Alb 2.9. MEDS: Reviewed. GI: No BM reported yet. CURRENT WT: 62.2 kg. DIET: Full liquids. No po intake reported. EST. NEEDS: 1640-6394 kcals (25-30 kcals/kg BW), 75-95 g protein (1.2-1.5 g/kg BW) NUTRITION DIAGNOSIS: 1.) Inadequate oral intake related to altered GI function as evidenced by Clear liquid diet with no po intake reported x 3 days. NUTRITION INTERVENTION: 1.) Will add ensure TID now that diet has been advanced to full liquids. MONITOR / EVAL: PO intake, diet advancement / tolerance, labs, nutritional status. Follow per high nutritional risk guidelines.
--- NOTE | 2017-02-18 15:53 | NUR ---
Barium swallow Pt taken down in w/ch to barium swallow.
--- NOTE | 2017-02-18 16:43 | DRSVH ---
PROCEDURE: X-RAY BARIUM SWALLOW ESOPHAGUS ([id number]) INDICATIONS: 56 year-old female with suspected gastric outlet obstruction, and prior gastric surgery. COMPARISON: [facility], CT, CT ABD PELVIS W CON, 02/15/2017, 18:32. FINDINGS: A limited study with single and air-contrast was performed in the standing position only, given patient positioning limitations from her intravenous lines and monitoring devices. Function: There is normal esophageal peristalsis. Morphology: Air-contrast images demonstrate normal esophageal mucosal morphology. Single contrast v iews show no esophageal strictures, extrinsic mass effects, or diverticula. Limited images of the [facility] demonstrate expected appearance status post distal stomach resection with gastrojejunostomy. Th ere is ready flow of oral contrast into nondistended small bowel loops, as well as some retrograde fl ow into the duodenum on overhead films. IMPRESSION: Expected appearance status post remote Billroth 2 surgery with gastrojejunostomy. No evid ence for gastric outlet obstruction. Dictated by: Domenico Blount M.D. on 02/18/2017 at 16:38 Approved by: Domenico Blount M.D. on 02/18/2017 at 16:41
--- NOTE | 2017-02-18 20:03 | NUR ---
Constipation Request something "to get things moving" gave yesenia montgomery Addendum: 02/19/17 at 0561 by ASTRID ANN RN Still no BM otherwise uneventful night medicating for pain nausea anxiety as needed
[2017-02-19] MEDS: Ondansetron 2 mg/mL 2 mL Inj IVPUSH PRN ×3 (00:14→13:52)
[2017-02-19] MEDS: Sucralfate 100 mg/mL 10 mL Suspension PO SCH ×3 (00:19→11:49)
[2017-02-19] MEDS: Dextrose 5% 0.45% NaCl 1,000 ML IV SCH ×2 (00:21→10:31)
[2017-02-19 01:47] VITALS: BP 126/74; PULSE 72; RESP 16; O2SAT 93
[2017-02-19 05:55] VITALS: PULSE 83
[2017-02-19 06:12] VITALS: BP 139/81; PULSE 90; RESP 18; O2SAT 92
[2017-02-19 07:08] LABS: Mean Corpuscular Hemoglobin 27.4 pg (27.0-35.0); Mean Corpuscular Volume 89.2 fL (81-100)
[2017-02-19] MEDS: Pantoprazole 4 mg/mL 10 mL Inj IVPUSH SCH (07:27)
[2017-02-19 08:00] VITALS: PULSE 89
--- NOTE | 2017-02-19 09:13 | PCM.PNSURG ---
Subjective Date of Service: Feb 19, 2017 Date of Service: Feb 19, 2017 Visit Information: Reason for Visit Gastric Outlet Obstruction Surgery/Surgery Date Post-Op Day # Date of Admission: Feb 15, 2017 at 20:54 Hospital Day # Subjective: Ms. Natalya Cervantes was sitting up in bed in no acute distress. She is concerned with continued abdominal pain, and nausea and vomiting when she goes home.She states her pain is well controlled for now with current medications. She has been tolerating clear liquids without nausea or vomiting. Objective Objective She has remained afebrile, normal vitals and hemodynamically stable . She has a total of 240 mL of oral intake recorded. Yesterday 840 ml recorded. Vital Sign- Last 8 Hours Date Time Temp Pulse Resp B/P Pulse Ox O2 Delivery O2 Flow Rate FiO2 02/19/17 06:12 36.6 90 18 139/81 92 Room Air 02/19/17 05:55 83 02/19/17 01:47 36.4 72 16 126/74 93 Room Air Intake and Output- Last 8 Hour 02/19/17 Cumulative From/Thru 07:00 02/15/17 16:00 - 02/19/17 06:13 Intake Total 1608 ml 8095 ml Output Total 3160 ml Balance 1608 ml 4935 ml Intake Oral 240 ml 1080 ml IV Total 1368 ml 6975 ml Tube Irrigant 40 ml Output Urine Total 2810 ml Gastric Drainage Total 350 ml # Voids 4 25 # Bowel Movements 0 General: Alert, Oriented X3, No Acute Distress Lungs: Clear to Auscultation Heart: Exam Unremarkable Abdomen: Soft, Non-tender, Non-distended Result Diagram: 02/19/17 0615 02/19/17 0615 Assessment & Plan Plan This is a 56-year-old female with complex surgical history, admitted with abdominal pain and symptoms of reflux and peptic ulcer disease. At this point, I have made no changes to my recommendations. Barium swallow yesterday showed no obstruction. Okay to advance diet to full liquids then as tolerated per GI and hospitalist discretion. Surgery will sign off. Okay for d/c from surgery standpoint. I will await op notes from [facility] and review when available. I recommend a gastric emptying study and gastrin levels at a later date (will need to d/c ppi for 7 days prior and H2 block 2-3 days prior to gastrin study). Resuscitation Status: CPR: Attempt Resuscitation WILIAN GLOVER DO Feb 19, 2017 09:13
[2017-02-19 11:30] VITALS: BP 123/71; PULSE 87; RESP 18; O2SAT 93
--- NOTE | 2017-02-19 13:10 | PCM.DIMED ---
Discharge Instructions Date of Service Feb 19, 2017 Dates of Hospitalization Feb 15, 2017 at 20:54 Discharge Diagnosis Discharge Diagnosis Gastric outlet obstruction, Ischemic ulcerative gastropathy/, HTN, Hyperlipidemia, PAD, chronic GI bleed with anemia Diet Other (full liquid, pureed foods only. Avoid coffeee, caffiene, citrus) Activity No restrictions Call your provider Fever or Chills, Shortness of breath, Bleeding, Chest pain, Vomitting, Excessive diarrhea, Weakness (unilateral), Other Patient Instructions Please see CARLITOS Restrepo in 2 weeks Follow-up plan Please follow up with CARLITOS Restrepo in 2 weeks Follow up with PCP in one week Lena Hutton DO Feb 19, 2017 13:10
[2017-02-19] MEDS ORDERED: SUCR1ORA PO (13:19)
--- NOTE | 2017-02-19 13:19 | PROG NOTE ---
[address] [address] PROGRESS NOTE PATIENT: SINA RYAN : 1960 MR#: [id number] ADMIT: 02/15/2017 JOB ID: [id number] DATE: 02/19/2017 SUBJECTIVE: The patient is seen in followup for her ongoing evaluation for gastric problems. Upper GI was obtained yesterday. This seems to suggest she had a Billroth-II. The stomach looks quite distended and patulous. I suspect she likely has gastroparesis. However, at this point, I see no reason why she needs to stay in the hospital. She can be discharged at the discretion of the Gastroenterology and hospice teams. She can followup with me in a couple weeks. I am going to work on getting her outside records and figure out a long-term solution for her.
--- NOTE | 2017-02-19 14:49 | NUR ---
Discharge Patient left floor at 1420 via wheelchair to be driven home by significant other. Discharge information discussed including medications and follow up appointments. Patient will call to make appointments. IV d/c'd intact. All belongings left with patient.
--- NOTE | 2017-02-19 15:10 | NUR ---
Social Work- Discharge Data: EMR reviewed. Pt is on day 4 of hospitalization for gastric outlet obstruction. Pt to discharge today. Pt is tolerating full liquid diet. Pt to discharge home via POV. No discharge needs identified. Assessment: Pt who is independent at base. Plan: Pt to discharge today. Pt to discharge home via POV. No discharge needs identified. Evelyn Morgan HOME VISITS NURSE
--- NOTE | 2017-02-19 16:40 | PATH ---
SURGICAL PATHOLOGY Attending Physician:Kenroy Restrepo M.D. CASE STATUS: Signed Out PATIENT NAME: SINA RYAN PID: [id number] : 1960 DATE COLLECTED:02/16/2017 00:00 SPECIMEN: Gastric, Biopsy CLINICAL HISTORY: GASTRIC ULCERATIONS 1). GASTRIC BIOPSY FINAL DIAGNOSIS: 1.STOMACH, BIOPSIES: ONE FRAGMENT OF GRANULATION TISSUE AND FIBRINOPURULENT EXUDATE CONSISTENT WITH ULCER BED DEBRIS. ONE FRAGMENT OF SMALL BOWEL MUCOSA WITH BLUNTED VILLOUS ARCHITECTURE AND INCREASED EOSINOPHILS IN THE LAMINA PROPRIA. NO EVIDENCE OF DYSPLASIA OR MALIGNANCY. SEE COMMENT. ICD10 code R10.9 NOTE: The morphologic features are consistent with ulcerated anastomotic site in a patient with a reported history of Antonio-en-Y gastrojejunostomy ([employer], [facility], [id number]). The finding of increased eosinophils in the lamina propria is not specific, but could be due to infection, allergies, drug reaction, or other hypersensitivity. GROSS DESCRIPTION: The specimen is received in one formalin filled container labeled with the patient's name, sublabeled "gastric" and consists of 2 portions of tissue which aggregate to 0.3 x 0.3 x 0.2 CM. The specimen is entirely submitted in one cassette. 02/17/2017 DAC MICRO DESCRIPTION: An immunohistochemical stain was performed to evaluate for Helicobacter organisms and is negative. A control stain showed appropriate reactivity. This test was developed and its performance characteristics determined by [employer] It has not been cleared or approved by the U. S. Food and Drug Administration. The FDA has determined that such clearance or approval is not necessary. This test is used for clinical purposes. It should not be regarded as investigational or for research. ICD-9 CODES: CPT CODES: 1: 66870, 85435 Electronically Signed Out Klaudia Lindsay MD [facility] Pathology [facility] [address], [place] [address] Technical component performed at [facility], [address], [place], [address]
--- NOTE | 2017-02-25 23:47 | PCM.DC.MED ---
Discharge Summary Date of Service Feb 19, 2017 Dates of Hospitalization Date of Hospital Admission Feb 15, 2017 at 20:54 Date of Discharge: Feb 19, 2017 Providers: Admitting Physician: Cali Ronquillo MD Primary Care Physician: Other,Physician Attending Physician: Cali Ronquillo MD Diagnosis at Time of Discharge Diagnosis at Time of Discharge Gastric outlet obstruction, Ischemic ulcerative gastropathy/, HTN, Hyperlipidemia, PAD, chronic GI bleed with anemia Consultations GI, General Surgery Procedures XRay, CTs & MRIs PROCEDURE: X-RAY BARIUM SWALLOW ESOPHAGUS ([id number]) INDICATIONS: 56 year-old female with suspected gastric outlet obstruction, and prior gastric surgery. IMPRESSION: Expected appearance status post remote Billroth 2 surgery with gastrojejunostomy. No evidence for gastric outlet obstruction. Dictated by: Domenico Blount M.D. on 02/18/2017 at 16:38 Approved by: Domenico Blount M.D. on 02/18/2017 at 16:41 INDICATIONS: 56 year-old female with small bowel obstruction. IMPRESSION: Interval decreased size of the gastric lumen, status post esophagogastric tube placement. Dictated by: Domenico Blount M.D. on 02/16/2017 at 12:54 Approved by: Domenico Blount M.D. on 02/16/2017 at 12:58 PROCEDURE: CT ABDOMEN AND PELVIS WITH CONTRAST ([id number]) INDICATIONS: abd pain IMPRESSION: 1. Markedly distended stomach suspicious for gastric outlet obstruction. There are postsurgical changes in stomach. Please correlate with surgical history. 2. Fluid-filled small intestine with increased mucosal enhancement. This finding is nonspecific and could be secondary to gastroenteritis. 3. Small hypodense cortical nodule in the inferior pole of left kidney appears stable. 4. Mild mesenteric lymphadenopathy. 5. Hepatomegaly. 6. Fluid filled slightly distended distal esophagus, possibly secondary to gastroesophageal reflux Dictated by: Fawad Hung M.D. on 02/15/2017 at 18:51 Approved by: Fawad Hung M.D. on 02/15/2017 at 19:08 PROCEDURE: X-RAY CHEST, TWO VIEWS ([id number]) INDICATIONS: chest pain IMPRESSION: No acute cardiopulmonary disease. Dictated by: Fawad Hung M.D. on 02/15/2017 at 17:08 Approved by: Fawad Hung M.D. on 02/15/2017 at 17:09 ECG 12 Lead Normal Sinus Rhythm with LBBB Brief History Very pleasant 56yo woman with complex GI history including distant partial gastrectomy, chronic GI bleed with anemia, SBO presents with nausea, vomiting, and burning pain in the stomach and low abdomen worsening over the last month. She reports that she has been vomiting at night after dinner for the last month or longer, but also recently started vomiting after breakfast and the abdominal pain and burning increased today to being intolerable. She says the partial gastrectomy was an attempt to treat her GI bleed which may have been from bleeding ulcers, but she has continued to have chronic mild bleeding and anemia. She did see some bright red blood in her stool today as she does every day. She is a history of cardiomyopathy as well and normally sats low. She states that 92% is good for her. She also has HTN and HLD. Hospital Course 56yo woman with history of partial gastrectomy, chronic GI bleed, SBO presents with increasing abdominal pain, nausea, and vomiting for the last month, intolerable today. CT suggests gastric outlet obstruction, distension of distal esophagus. Gastric Outlet Obstruction, POA, confirmed by CT with clinical correlation of symptoms. -Clear liquid diets with possible advancement to full liquid diet later today -Give 250 mg IV of erythromycin 20 minutes prior to starting liquid diet -Barium swallow study as per requested by general surgery -Pain control with morphine IV -Endoscopy 02/16/17 showing ischemic ulcerations in the stomach -Consult general surgery (Dr. Gomez) Nausea and Vomiting -Continue Ondansetron 4mg IV PRN GERD -Pantoprazole 40mg IV push BIDAC -Carafate 10 mL 4 times a day when necessary Hypovolemia -Continue IV fluids Hypomagnesemia at 1.4 on admission. Chronic hypomagnesemia on replacement therapy. -Patient was repleted with 2 g of mag sulfate -Follow up mag level in the morning was 1.3 -Replete with 4 g of mag sulfate (02/17/17) -Magnesium 1.6 today replete with 2 g of magnesium Hypokalemia (chronic on replacement therapy) -Currently stable and within normal ranges Insomnia with anxiety -Restart her home dose of zolpidem -Lorazepam 2mg IV q4h PRN Hypertension (controlled) -Hold home medications and start again as needed if/when patient can tolerate orals HLD -Hold home medications as patient is nothing by mouth History of Cardiomyopathy with chronic hypomagnesemia and hypokalemia -Currently stable -Patient currently on telemetry -Continue to monitor potassium and magnesium Disposition: At this time gastroenterology and general surgery have several things that they want to do with the patient however some of this can be followed up as an outpatient. GI like the patient follow-up within 2 weeks. At this time we will obtain a barium swallow study for the patient and then attempt to re-feed her. If she is able to tolerate a full liquid diet that she will be able to be discharged home tomorrow. Patient does still have a significant amount of pain however at this time we will attempt to control the patient's pain until she is able to get more definitive answers with these multiple outpatient studies. Exam Vital Signs (Last) Date Time Temp Pulse Resp B/P Pulse Ox O2 Delivery O2 Flow Rate FiO2 02/19/17 11:30 36.7 87 18 123/71 93 Room Air 02/17/17 06:33 3.00 Exam GEN: Patient was awake, alert, responding appropriately to questions HEENT: extraocular eye muscles intact, Neck soft supple, trachea midline, nomocephalic/atraumatic CV: +S1/S2, regular rate and rhythm, no murmurs auscultated Respiratory: CTAB, no wheezes, rales, rhonchi GI: Normal bowel sounds nondistended, soft EXT: no clubbing, cyanosis, edema Psych: mood and affect were appropriate Test 02/15/17 17:15 02/15/17 17:25 02/16/17 05:10 02/18/17 07:55 Hold Urine Received (Received) Troponin T < 0.010ug/L (0.0-0.011) Amylase Level 24U/L (28-100) Neutrophils (%) (Auto) 69.5% (40-74) Lymphocytes (%) (Auto) 18.5% (14-46) Monocytes (%) (Auto) 9.1% (4-12) Eosinophils (%) (Auto) 2.3% (0-5) Basophils (%) (Auto) 0.4% (0-3) Magnesium Level 1.6mg/dL (1.6-2.6) Total Bilirubin 0.2mg/dL (0.0-1.2) Aspartate Amino Transf (AST/SGOT) 12U/L (0-50) Alanine Aminotransferase (ALT/SGPT) 8U/L (0-32) Alkaline Phosphatase 114U/L (25-150) Total Protein 4.7g/dL (6.4-8.4) Albumin 2.9g/dL (3.4-5.0) Test 02/19/17 06:15 White Blood Count 5.5th/mm3 (3.8-10.1) Red Blood Count 4.46mil/mm3 (3.90-5.20) Hemoglobin 12.2g/dL (12.0-15.6) Hematocrit 39.8% (35.0-46.0) Mean Corpuscular Volume 89.2fL (81-100) Mean Corpuscular Hemoglobin 27.4pg (27.0-35.0) Mean Corpuscular Hemoglobin Concent 30.7% (32.0-37.0) Red Cell Distribution Width 15.0% (12.3-15.4) Platelet Count 302bil/L (150-400) Sodium Level 143mEq/L (134-144) Potassium Level 3.5mEq/L (3.5-5.2) Chloride Level 103mEq/L (97-108) Carbon Dioxide Level 28mmol/L (18-29) Blood Urea Nitrogen 7mg/dL (6-24) Creatinine 0.36mg/dL (0.57-1.00) Estimat Glomerular Filtration Rate 267mL/min (>59) Glucose Level 111mg/dL (60-99) Calcium Level 8.6mg/dL (8.5-10.1) Lipase 27U/L (13-60) Discharge Medications Discharge Medications Amlodipine (Amlodipine) 10 Mg Tablet 10 MG PO DAILY (Reported) Atorvastatin (Lipitor) 10 Mg Tab 10 MG PO DAILY (Reported) Cholecalciferol (Vitamin D3) (Vitamin D) 50,000 Unit Capsule 50,000 UNIT PO WEEKLY (Reported) Gabapentin (Gabapentin) 300 Mg Capsule 300 MG PO BID (Reported) Magnesium Oxide (Magnesium) 400 Mg Tablet 400 MG PO BID (Reported) Metoclopramide (Metoclopramide) 10 Mg Tablet 10 MG PO TID (Reported) Metoprolol Succinate ER (Metoprolol Succinate ER) 50 Mg Tab.er.24h 50 MG PO DAILY (Reported) Nitroglycerin SL (Nitroglycerin SL) 0.4 Mg Tab.subl 0.4 MG SL PRN (Reported) Oxybutynin Chloride ER (Oxybutynin Chloride ER) 5 Mg Tab.er.24 5 MG PO DAILY ( Reported) Pantoprazole DR (Pantoprazole DR) 40 Mg Tablet.dr 40 MG PO DAILY (Reported) Prochlorperazine Maleate (Compazine) 10 Mg Tablet 10 MG PO TID (Reported) Ranitidine (Ranitidine) 300 Mg Tablet 300 MG PO HS (Reported) Sucralfate (Sucralfate) 1 Gm/10 Ml Oral.susp 1,000 MG PO ACHS Prescribed by: LENA SANTIAGO DO Tizanidine (Tizanidine) 2 Mg Tablet 2 MG PO TID (Reported) As needed Docusate Sodium (Docusate Sodium) 250 Mg Capsule 250 MG PO DAILY PRN PRN For Constipation (Reported) Lorazepam (Lorazepam) 2 Mg Tablet 2 MG PO HS PRN PRN For Insomnia (Reported) oxyCODONE (oxyCODONE) 5 Mg/5 Ml Solution 10-20 MG PO Q4 PRN PRN For Pain ( Reported) [id number] PRN PAIN Followup Plan Follow-up plan Please follow up with CARLITOS Restrepo in 2 weeks Follow up with PCP in one week Discharge Diet: Other (full liquid, pureed foods only. Avoid coffeee, caffiene , citrus) Discharge Activity: No restrictions Patient Instructions Please see CARLITOS Restrepo in 2 weeks Lena Santiago DO Feb 19, 2017 13:22
== END 2017-02-19 14:20 | disposition home or self-care (01) | DRG 254 ==
LOC: SED 15:51 → MOC 20:54 → OBSVTOIN 20:54
PROVIDERS: ADMIT Hospitalist; ATTEND Hospitalist
PROC: 0DB68ZX Excision of Stomach, Via Natural or Artificial Opening Endoscopic, Diagnostic (ICD-10-PCS; principal; 2017-02-16 15:00)
DX: K31.1 Adult hypertrophic pyloric stenosis (principal); I42.9 Cardiomyopathy, unspecified; I10 Essential (primary) hypertension; E78.5 Hyperlipidemia, unspecified; R11.2 Nausea with vomiting, unspecified; Z87.891 Personal history of nicotine dependence; K21.9 Gastro-esophageal reflux disease without esophagitis; E83.42 Hypomagnesemia; G47.00 Insomnia, unspecified; F41.9 Anxiety disorder, unspecified; E87.6 Hypokalemia; K31.9 Disease of stomach and duodenum, unspecified; E86.1 Hypovolemia

== ENCOUNTER 2017-03-22 22:15 | Emergency (ER) | payer MEDICARE, MEDICAID ==
[~2017-03-22] VITALS: Ht 170.2 cm; Wt 62.7 kg
[~2017-03-22 22:15] MED LIST changes: -IBUP800T28 PO; -ISOS30TA4 PO; +METO10TA3 PO; -POTA-62 PO; +SUCR1ORA PO; -SUCR1TAB PO; -ZOLP10TA5 PO
[2017-03-22 22:27] VITALS: BP 142/86; PULSE 75; RESP 20; O2SAT 90
--- NOTE | 2017-03-22 22:48 | ED.REPORT ---
HPI-Chest Pain 40 and Over Date of Service March 22, 2017 ED Provider: Dr. Mata 56 y/o female with a hx of gastric ulcers (gastrectomy - 40% removed), gastric outlet obstruction, colitis, HTN and HI presents to the ED complaining of chest pain, onset 0600 this morning. Her chest pain worsens with onset of abdominal pain, given her hx. She states Nitroglycerin was not very helpful. Nursing Notes Stated Complaint: CHEST PAIN Chief Complaint: Chest Pain Nursing Notes Reviewed: Yes Allergies: Coded Allergies: ciprofloxacin (Verified Allergy, Severe, HIVES, 03/22/17) adhesive tape (Verified Adverse Reaction, Intermediate, WELTS, 03/22/17) Scheduled Amlodipine (Amlodipine) 10 Mg Tablet 10 MG PO DAILY Atorvastatin (Lipitor) 10 Mg Tab 10 MG PO DAILY Cholecalciferol (Vitamin D3) (Vitamin D) 50,000 Unit Capsule 50,000 UNIT PO WEEKLY Gabapentin (Gabapentin) 300 Mg Capsule 300 MG PO BID Magnesium Oxide (Magnesium) 400 Mg Tablet 400 MG PO BID Metoclopramide (Metoclopramide) 10 Mg Tablet 10 MG PO TID Metoprolol Succinate ER (Metoprolol Succinate ER) 50 Mg Tab.er.24h 50 MG PO DAILY Nitroglycerin SL (Nitroglycerin SL) 0.4 Mg Tab.subl 0.4 MG SL PRN Oxybutynin Chloride ER (Oxybutynin Chloride ER) 5 Mg Tab.er.24 5 MG PO DAILY Pantoprazole DR (Pantoprazole DR) 40 Mg Tablet.dr 40 MG PO DAILY Prochlorperazine Maleate (Compazine) 10 Mg Tablet 10 MG PO TID Ranitidine (Ranitidine) 300 Mg Tablet 300 MG PO HS Sucralfate (Sucralfate) 1 Gm/10 Ml Oral.susp 1,000 MG PO ACHS Tizanidine (Tizanidine) 2 Mg Tablet 2 MG PO TID Scheduled PRN Docusate Sodium (Docusate Sodium) 250 Mg Capsule 250 MG PO DAILY PRN PRN For Constipation Lorazepam (Lorazepam) 2 Mg Tablet 2 MG PO HS PRN PRN For Insomnia oxyCODONE (oxyCODONE) 5 Mg/5 Ml Solution 10-20 MG PO Q4 PRN PRN For Pain [id number] PRN PAIN General Time Seen by MD: 22:48 Chief Complaint Chest pain Hx Obtained From: Patient Arrived By: Walk-in Sudden in Onset?: Yes Onset Occurred: 17 - 20 hours ago Symptom Duration: Since onset Location: : Substernal Quality: Painful Radiation: : Does not radiate Severity: Current: Moderate Severity: Maximum: Moderate Recent Healthcare: Recent doctor visit Similar Sx Previous: Yes Past Medical History Past Medical History HI HTN COLITIS GASTRIC OUTLET OBSTRUCTION GASTRIC ULCER (GASTERECTOMY) GERD KIDNEY STONES ARTHRITIS DEPRESSION ANXIETY BREAST CANCER Past Surgical History GASTRECTOMY BOWEL RESECTION BILATERAL MASTECTOMIES Smoking History Former Smoker Ambulatory Status Independent Review of Systems Cardiovascular: Reports: Chest pain GI: Reports: Abdominal pain Complete sys rev & neg: except as marked. Physical Exam Initial Vital Signs Vital Signs (First) Date Time Temp Pulse Resp B/P Pulse Ox O2 Delivery O2 Flow Rate FiO2 03/22/17 22:27 37.1 75 20 142/86 90 Room Air 03/23/17 01:20 2 Initial VS: Reviewed, Vital signs normal Head / Eyes: Atraumatic, Normocephalic Extremities: Vascular intact, Neuro intact, No swelling, No tenderness Skin: Warm, Dry, No cyanosis Neurologic: Alert, Oriented, Nonfocal Respiratory / Chest: Atraumatic, Breath sounds NL, Breath sounds = bilat, No respiratory distress, No rales, No rhonchi, No wheezing Cardiovascular: Heart rate NL, Regular rhythm, Heart sounds NL, No gallop, No murmurs, No rubs No peripheral edema. Abdomen: Atraumatic, Soft, No guarding, No rebound, No distention Tenderness/Guarding/Rebound: Positive: Tender diffuse (across upper abdomen) Neck: Atraumatic, Full range of motion, No JVD Interpretation & Diagnostics Lab Results Interpretation Result Diagram: 03/23/17 0620 03/22/17 2245 Test 03/22/17 22:45 03/23/17 06:20 White Blood Count 9.2th/mm3 (3.8-10.1) Red Blood Count 5.01mil/mm3 (3.90-5.20) Mean Corpuscular Volume 87.4fL (81-100) Mean Corpuscular Hemoglobin 27.9pg (27.0-35.0) Mean Corpuscular Hemoglobin Concent 32.0% (32.0-37.0) Red Cell Distribution Width 15.6% (12.3-15.4) Platelet Count 316bil/L (150-400) Neutrophils (%) (Auto) 73.5% (40-74) Lymphocytes (%) (Auto) 16.8% (14-46) Monocytes (%) (Auto) 7.7% (4-12) Eosinophils (%) (Auto) 1.5% (0-5) Basophils (%) (Auto) 0.4% (0-3) D-Dimer < 0.50mg/L FEU (<0.50) Sodium Level 141mEq/L (134-144) Potassium Level 3.2mEq/L (3.5-5.2) Chloride Level 101mEq/L (97-108) Carbon Dioxide Level 25mmol/L (18-29) Blood Urea Nitrogen 18mg/dL (6-24) Creatinine 0.42mg/dL (0.57-1.00) Estimat Glomerular Filtration Rate 224mL/min (>59) Glucose Level 123mg/dL (60-99) Calcium Level 9.8mg/dL (8.5-10.1) Magnesium Level 1.3mg/dL (1.6-2.6) Total Bilirubin 0.2mg/dL (0.0-1.2) Aspartate Amino Transf (AST/SGOT) 14U/L (0-50) Alanine Aminotransferase (ALT/SGPT) 9U/L (0-32) Alkaline Phosphatase 116U/L (25-150) Troponin T 0.010ug/L (0.0-0.011) Total Protein 6.3g/dL (6.4-8.4) Albumin 3.8g/dL (3.4-5.0) Hemoglobin 12.1g/dL (12.0-15.6) Hematocrit 38.9% (35.0-46.0) Lab Results Interpretation: Hypokalemia ECG Interpretation ECG Interpretation: Normal sinus rhtyhm. Rate 77. Multiple ventricular premature complexes. Left atrial enlargement. Left bundle branch block. Unhanged from previosu EKG on 02/15/17. Time: 22:38 Interpreted by: ED physician ECG Interpretation: V-tach rate 123 Time: 03:55 Interpreted by: ED physician X-Ray Chest Interpretation Chest Xray Interpretation: Result: No acute pulmonary disease. Read by Dr. Mata at 00:20 View: Portable, 1 view Interpretation / Wet Read by: Wet read ED physician CT Abd / Pelvis Interpretation Impression: Gastric dilation and increased intragastric contents and remainder examination essentially unchanged alloweing for mild differences in technique. Signed by: Kay Davies M.D. 03/23/17. 01:25. Study type: Abdominal CT IV contrast Interpretation / Wet Read by: Interpret - Radiologist Re-Eval/Medical Decision Med Decision/Clinical Course [id number] female with a history of gastric outlet obstruction related to peptic ulcer disease presents now with increasing symptoms of gastric distention , shortness of breath, and a general feeling of malaise. She has seen Dr. Restrepo and Dr. Gomez locally concerning this problem and was referred to [facility] to a specialist. She has yet to have that appointment. Her workup was initiated by me to include generally normal labs including negative d-dimer , but except for hypokalemia at 3.2, CT scan which showed increasing gastric distention but no other abnormalities. An NG tube was placed which drained over 500 mL of bloody fluid a dark red color. She was also noted to have a left bundle-branch block and at one point had a several second run of 1 wide- complex tachycardia of uncertain etiology. EKG was normal except for the bundle -branch block. Her care is now being turned over at change of shift to Dr. Marcie Valdez for further evaluation of this new finding and disposition. Source of Hx: Old records Time of Eval: 00:27 Patient Status: Condition improved Re-Evaluation/Progress Note: Rechecked pt. Informed the pt a CT will be required. She understands and agrees with the plan. Time of Eval: 04:10 Patient Status: Condition improved Re-Evaluation/Progress Note: Rechecked pt. Discussed lab and imaging results. Informed the pt of the plan to ---. She understands and agrees with the plan. Consultation : Call Returned at: 04:17 Inspector Dials: Referred to other consult Note: A resident at [facility] took the call and reported she can not accept a patient who has not established care with them yet. Counseled Regarding: Diagnosis, Lab results Discharge & Departure Primary Impression: Gastric outlet obstruction Disposition: Home Discharge Condition All VS Reviewed: Yes Referrals: Armand Rodriguez PA-C (PCP) (Family) Scribe Attestation Portions of this note were transcribed by Mia Black. I, , personally performed the history, physical exam and medical decision-making;I reviewed and confirmed the accuracy of the information in the transcribed note. Signed by Stefania Lunsofrd. 03/22/17 1746 copies to: Armand Rodriguez PA-C, Howard L MD March 22, 2017 22:48 Mia Black March 22, 2017 22:56 Nadeen Mcgarry March 23, 2017 07:13
[2017-03-22 22:56] LABS: BASOPHILS % (AUTO) 0.4 % (0-3); EOSINOPHILS % (AUTO) 1.5 % (0-5); MONOCYTES % (AUTO) 7.7 % (4-12); Mean Corpuscular Hemoglobin 27.9 pg (27.0-35.0); Mean Corpuscular Volume 87.4 fL (81-100); NEUTROPHILS % (AUTO) 73.5 % (40-74); Platelet Count 316 bil/L (150-400)
[2017-03-22 23:18] LABS: TROPONIN T 0.01 ug/L (0.0-0.011)
[2017-03-22] MEDS ORDERED: HYDROmorphone 1 mg/mL Inj IVPUSH ONE (23:25)
[2017-03-22 23:30] LABS: Magnesium 1.3 mg/dL (1.6-2.6)
[2017-03-23 01:20] VITALS: BP 150/85; PULSE 78; RESP 16; O2SAT 94
[2017-03-23] MEDS: HYDROmorphone 1 mg/mL Inj IVPUSH PRN ×4 (03:23→08:48)
[2017-03-23 04:08] VITALS: PULSE 88; RESP 18; O2SAT 90
[2017-03-23 04:44] VITALS: BP 154/91; PULSE 80; RESP 16; O2SAT 90
[2017-03-23 08:00] VITALS: BP 139/65; PULSE 72; RESP 15; O2SAT 92
--- NOTE | 2017-03-23 08:21 | DRSVH ---
PROCEDURE: CT ABDOMEN AND PELVIS WITH CONTRAST ([id number]) INDICATIONS: worsening gastric outlet obst. symptoms TECHNIQUE: After the administration of oral and intravenous contrast, 5 mm thick sections acquired from the diap hragms to the symphysis. 5 mm thick coronal and sagittal reformats were performed. For radiation do se reduction, the following was used: automated exposure control, adjustment of mA and/or kV accordi ng to patient size. COMPARISON: [facility], CT, CT ABD PELVIS W CON, 02/15/2017, 18:32. FINDINGS: Image quality: Excellent. ABDOMEN: Lung bases: Smooth margined right lower lobe 8mm pulmonary nodule stable since at least 2010 consiste nt with benignity. Ill-defined infectious appearing lingular nodules measuring 3-4 mm (for example se 4 im 1 and 2). Right middle lobe atelectasis or scarring with associated bronchiectasis. Remaining l juan jose bases are clear. Heart size is normal. Solid organs: Mild hepatosplenomegaly. Otherwise the liver and spleen are normal. Cholecystectomy. No rmal pancreas and adrenal glands. Nonenhancing 1 cm inferior left renal nodule. Otherwise the kidneys are normal. Peritoneum and bowel: The stomach is distended containing oral contrast and ingested material with re flux of oral contrast into the distal esophagus. Postoperative changes in the stomach. Fluid-filled h yperenhancing small bowel with no perforation or obstruction.. Wall thickening in the colon may be du e to underdistention or early inflammation/infection. No free fluid or air. Nodes and vessels: Improving mild retroperitoneal lymphadenopathy. Aorta and inferior vena cava are normal in caliber. Vascular calcifications. Miscellaneous: No ventral hernias. PELVIS: Genitourinary: Bladder wall thickness is normal. Miscellaneous: No inguinal hernias or adenopathy. Bones: No suspicious bony lesions. No vertebral body compression fractures. IMPRESSION: 1. Stable gastric distention with postoperative changes concerning for gastric outlet obstruction cau sing reflux of contrast into the distal esophagus. This finding may place the patient at risk for asp iration. 2. Fluid-filled hyperenhancing small bowel may represent mild enteritis. Wall thickening the colon ma y be due to underdistention or due to early colitis. No bowel obstruction or perforation. 3. Improving mild retroperitoneal lymphadenopathy. 4. There are no discrepancies are with the pulmonary report. Dictated by: Pipo Meehan M.D. on 03/23/2017 at 8:09 Approved by: Pipo Meehan M.D. on 03/23/2017 at 8:20
--- NOTE | 2017-03-23 08:22 | DRSVH ---
PROCEDURE: X-RAY CHEST ONE VIEW, PORTABLE ([id number]) INDICATIONS: cp TECHNIQUE: One view of the chest was acquired. COMPARISON: [facility], CR, XR ABD AP 1VW, 02/16/2017, 12:27. [facility], CT , CT ABD PELVIS W CON, 03/23/2017, 1:03. FINDINGS: Surgical changes and devices: None. Lungs and pleura: No pleural effusions or pneumothorax. Lungs are clear. Mediastinum: Mediastinal contours appear normal. Heart size is normal. Bones and chest wall: No suspicious bony lesions. Overlying soft tissues appear unremarkable. [place] n[place] in the left hemidiaphragm. IMPRESSION: 1. No acute cardiopulmonary disease. 2. Lucency under the left hemidiaphragm. A subsequent CT of the abdomen showed distended stomach rath er than free peritoneal air. Dictated by: Fawad Hung M.D. on 03/23/2017 at 8:18 Approved by: Fawad Hung M.D. on 03/23/2017 at 8:21
[2017-03-23 10:20] VITALS: BP 137/65; PULSE 74; RESP 12; O2SAT 92
[2017-03-23] MEDS ORDERED: HYDROmorphone 1 mg/mL Inj IVPUSH ONE (10:40)
== END 2017-03-23 11:40 | disposition short-term general hospital (02) ==
LOC: SED 22:15
DX: K31.1 Adult hypertrophic pyloric stenosis (principal); K92.2 Gastrointestinal hemorrhage, unspecified; D62 Acute posthemorrhagic anemia; R07.9 Chest pain, unspecified; I10 Essential (primary) hypertension; I25.2 Old myocardial infarction; K21.9 Gastro-esophageal reflux disease without esophagitis; K52.9 Noninfective gastroenteritis and colitis, unspecified; Z93.1 Gastrostomy status; Z87.891 Personal history of nicotine dependence; Z87.442 Personal history of urinary calculi; Z87.11 Personal history of peptic ulcer disease
CPT/HCPCS: 36415; 71010; 74177; 80053; 82948; 83735; 84484; 85014; 85018; 85025; 85378; 93005; 96374; 96376; 99285; J1170; Q9967